=== PATIENT | male | born 1960 | race Hispanic/Latino ===

== ENCOUNTER 2017-12-01 19:09 | Emergency (ER) | payer OTHER ==
[~2017-12-01] VITALS: Ht 172.7 cm; Wt 93.0 kg
--- NOTE | 2017-12-01 19:26 | ED HEADACHE COMPLAINT ---
History of Present Illness General Chief Complaint: Headache Stated Complaint: HEADACHE Source: patient, family Exam Limitations: no limitations Vital Signs & Intake/Output Vital Signs & Intake/Output Vital Signs Date Time Temp Pulse Resp B/P B/P Pulse O2 O2 Flow FiO2 Mean Ox Delivery Rate 12/01 2029 152/100 12/02 2007 Room Air 12/01 1918 152/100 12/01 1914 96.2 75 18 172/117 98 Room Air Allergies Coded Allergies: No Known Allergies (12/01/17) Reconcile Medications Amlodipine Besylate (Norvasc) 5 MG TABLET 1 TAB PO DAILY HIGH BLOOD PRESSURE Triage Note: PT FROM HOME C/O SENT IN BY WALK IN CLINIC AND PCP, PT RECENTLY HAD HIS LISINOPRIL DOSE INCREASED FROM 5MG TO 10MG AND PROVIDER STATED IF HIS BP IS NOT DECREASED BY THE WEEKEND TO GO INTO THE ER. PT A&0X3, AMBULATORY, STATES HALL "A PRESSURE IN THE FRONT OF MY SKULL", LIGHTHEADED AT TIMES WELL. PT DENIES CP, SOB, ARM NUMBNESS/TINGLING. PTS BP IN TRIAGE 172/117 AUTO CUFF, 152/100 MANUALLY. PT ALSO STATES "MY EYES ARE REALLY HEAVY AND IM TIRED AND NOT RIGHT, KIND OF OUT OF IT" Triage Nurses Notes Reviewed? yes HPI: Patient has been on lisinopril for the past 4-5 years. Patient states that approximately week and a half ago he started developing a frontal throbbing headache and his eyes have just felt heavy. Patient states that he just feels off but he cannot really describe what that means of that. Patient has had had episodic room spinning dizziness associated with nausea. Patient went to his primary care physician his blood pressure was running high. His lisinopril was increased to 10 mg and Antivert was prescribed as well. Patient is not feeling any better and his blood pressure continues to run high she was sent to the emergency room for evaluation. The headache is throbbing and is in the frontal area there is no aggravating or mitigating factors. There is no radiation. He rates it at 4 out of 10. Past History Travel History Traveled to [place] past [place] day No Medical History Any Pertinent Medical History? see below for history Neurological: NONE EENT: NONE Cardiovascular: hypertension Respiratory: NONE Gastrointestinal: NONE Hepatic: NONE Renal: NONE Musculoskeletal: NONE Psychiatric: NONE Endocrine: NONE Surgical History Surgical History: non-contributory Psychosocial History What is your primary language Kenyan Tobacco Use: Never used ETOH Use: occasional use Illicit Drug Use: denies illicit drug use Family History Hx Contributory? No Review of Systems Review of Systems Constitutional: Reports: no symptoms. Eyes: Reports: no symptoms. Ears, Nose, Throat, Mouth: Reports: no symptoms. Respiratory: Reports: no symptoms. Cardiovascular: Reports: no symptoms. Gastrointestinal/Abdominal: Reports: see HPI, nausea. Genitourinary: Reports: no symptoms. Musculoskeletal: Reports: no symptoms. Skin: Reports: no symptoms. Neurological/Psychological: Reports: see HPI, headache. Hematologic/Endocrine: Reports: no symptoms. Endocrine: Reports: no symptoms. Immunologic/Allergic: Reports: no symptoms. All Other Systems: Reviewed and Negative Physical Exam Physical Exam General Appearance: well developed/nourished, alert, awake, anxious, mild distress Head: atraumatic, normal appearance Eyes: Bilateral: PERRL, EOMI. Ears, Nose, Throat: normal pharynx, normal ENT inspection, hearing grossly normal Neck: normal inspection, supple, full range of motion Respiratory: normal breath sounds, chest non-tender, no respiratory distress, lungs clear Cardiovascular: regular rate/rhythm, normal peripheral pulses Gastrointestinal: normal bowel sounds, soft, non-tender, no organomegaly Back: normal inspection, normal range of motion Extremities: normal inspection, normal capillary refill, normal range of motion, no edema Psychiatric: awake, alert, oriented x 3 Cranial Nerves: normal hearing, normal speech, PERRL Coordination/Gait: normal gait Motor/Sensory: no motor/sensory deficits Skin: intact, normal color, warm/dry Core Measures Sepsis Present: No Sepsis Focused Exam Completed? No Progress Differential Diagnosis: intracranial Hem., subarach. Hem., tension HALL, HTN URGENCY Plan of Care: Orders Procedure Date/time Status URINALYSIS 12/01 1925 Active TROPONIN LEVEL 12/01 1925 Complete COMPREHENSIVE METABOLIC PANEL 12/01 1925 Complete CBC WITHOUT DIFFERENTIAL 12/01 1925 Complete EKG 12/01 1925 Active Laboratory Tests 12/01/171944: Anion Gap 9, Estimated GFR > 60, BUN/Creatinine Ratio 17.1, Glucose 134 H, Calcium 8.8, Total Bilirubin 0.6, AST 74 H, ALT 112 H, Alkaline Phosphatase 50 , Troponin I < 0.01, Total Protein 6.5, Albumin 3.9, Globulin 2.6, Albumin/ Globulin Ratio 1.5, CBC w Diff NO MAN DIFF REQ, RBC 4.41 L, MCV 91.3, MCH 31.5 H, MCHC 34.5, RDW 12.5, MPV 9.1, Gran % 52.3, Lymphocytes % 35.9, Monocytes % 7.6, Eosinophils % 3.8, Basophils % 0.4, Absolute Granulocytes 2.9, Absolute Lymphocytes 2.0, Absolute Monocytes 0.4, Absolute Eosinophils 0.2, Absolute Basophils 0 Diagnostic Imaging: Viewed by Me: CT Scan. Discussed w/RAD: CT Scan. Radiology Impression: PATIENT: ARIE ALCOCER PRESENT AGE: 57 PATIENT ACCOUNT NO: [id number] : 60 LOCATION: [facility] ORDERING PHYSICIAN: Kiran Blair MD SERVICE DATE: 12/01/17 EXAM TYPE: CAT - CT HEAD WO IV CONTRAST EXAMINATION: CT HEAD without contrast CLINICAL INFORMATION: ICH COMPARISON: No prior CT scan available for comparison. TECHNIQUE: Computer axial tomographic sections acquired at 2.5 mm thin sections, noncontrasted study. DLP: 621 mGy-cm FINDINGS: CEREBRAL HEMISPHERES: There is no evidence of intra-axial or extra-axial mass, hemorrhage or acute infarct. BRAIN PARENCHYMA: Normal villela-white matter differentiation. SUBDURAL SPACE: No bleed. BASAL GANGLIA AND PINEAL GLAND: Unremarkable VENTRICLES: Symmetric and normal in size. CEREBELLUM AND BRAINSTEM: No space-occupying mass, hemorrhage or acute infarct. CEREBELLOPONTINE ANGLES: No lesion found. ORBITS: No intraorbital mass. VESSELS: Unremarkable SKULL BASE: Unremarkable INCLUDED SINUSES AT SKULL BASE: Clear SKULL AND SKIN: No fracture or bone lesion found. IMPRESSION: No CT evidence of intracranial space-occupying mass, bleed or infarct. DICTATED BY: Aysha Hess MD DATE/TIME DICTATED:12/01/172007 CLEANING SUPERVISOR:EZEQUIEL DATE/TIME TRANSCRIBED:12/01/172007 CONFIDENTIAL, DO NOT COPY WITHOUT APPROPRIATE AUTHORIZATION. <Electronically signed in Other Vendor System> SIGNED BY: Jimena WILLS,Aysha 12/01/172015 Initial ED EKG: NSR, no ST T wave changes Comments: Patient states that he has been drinking a lot of water lately to try and help with the headaches. Departure Departure Disposition: HOME OR SELF CARE Condition: Stable Clinical Impression Primary Impression: Headache Secondary Impressions: Hypertension Referrals: Patrick WILLS,Isma Fabian (PCP/Family) Additional Instructions: Check your blood pressure 3 times a day. Continue the lisinopril as prescribed by Dr. Nguyen and add amlodipine 5 mg daily to it. Have your blood work redrawn on Sunday and the results will be sent to Dr. Nguyen. Avoid free water as your salt level is a little bit low. Return if he develops any blurry vision, vomiting or for any other concerns. These headaches might be rebound headaches from the Advil that she has been taking. Changed to Tylenol for the next few days to see if that helps with the headaches. Departure Forms: Customer Survey General Discharge Information Prescriptions: Current Visit Scripts Amlodipine Besylate (Norvasc) 1 TAB PO DAILY #14 TAB
[2017-12-01 20:02] LABS: ABSOLUTE BASOPHIL COUNT 0 /CUMM (0.0-0.2); ABSOLUTE EOSINOPHIL COUNT 0.2 /CUMM (0.0-0.7); ABSOLUTE GRANULOCYTE CT 2.9 /CUMM (1.4-6.5); ABSOLUTE MONOCYTE COUNT 0.4 /CUMM (0.10-0.60); BASOPHIL % 0.4 % (0.0-2.0); EOSINOPHIL % 3.8 % (0-5); GRANULOCYTE % 52.3 % (42.2-75.2); HEMATOCRIT 40.2 % (42-52); MEAN CORPUSCULAR HGB 31.5 PG (27.0-31.0); MEAN CORPUSCULAR HGB CONC 34.5 G/DL (33.0-37.0); MEAN CORPUSCULAR VOLUME 91.3 FL (80.0-94.0); MEAN PLATELET VOLUME 9.1 FL (7.4-10.4); PLATELET COUNT 180 /CUMM (130-400); RBC DISTRIBUTION WIDTH 12.5 % (11.5-14.5); RED BLOOD CELL CT 4.41 /CUMM (4.70-6.10); WHITE BLOOD CELL COUNT 5.5 /CUMM (4.8-10.8)
--- NOTE | 2017-12-01 20:16 | CT SCAN REPORT ---
EXAMINATION: CT HEAD without contrast CLINICAL INFORMATION: ICH COMPARISON: No prior CT scan available for comparison. TECHNIQUE: Computer axial tomographic sections acquired at 2.5 mm thin sections, noncontrasted study. DLP: 621 mGy-cm FINDINGS: CEREBRAL HEMISPHERES: There is no evidence of intra-axial or extra-axial mass, hemorrhage or acute infarct. BRAIN PARENCHYMA: Normal villela-white matter differentiation. SUBDURAL SPACE: No bleed. BASAL GANGLIA AND PINEAL GLAND: Unremarkable VENTRICLES: Symmetric and normal in size. CEREBELLUM AND BRAINSTEM: No space-occupying mass, hemorrhage or acute infarct. CEREBELLOPONTINE ANGLES: No lesion found. ORBITS: No intraorbital mass. VESSELS: Unremarkable SKULL BASE: Unremarkable INCLUDED SINUSES AT SKULL BASE: Clear SKULL AND SKIN: No fracture or bone lesion found. IMPRESSION: No CT evidence of intracranial space-occupying mass, bleed or infarct.
[2017-12-01] MEDS ORDERED: NORVASC5 M1 PO (20:59)
[2017-12-01 21:21] VITALS: BP 139/92
== END 2017-12-01 21:22 ==
LOC: ERH 19:09
PROVIDERS: Emergency Medicine
DX: I10 Essential (primary) hypertension (principal)
CPT/HCPCS: 93005; 93010

== ENCOUNTER 2017-12-05 15:42 | Inpatient (IN) | payer OTHER ==
[~2017-12-05] VITALS: Ht 172.7 cm; Wt 89.0 kg
[~2017-12-05 15:42] MED LIST: NORVASC5 M1 PO
[2017-12-05 17:00] LABS: ABSOLUTE BASOPHIL COUNT 0 /CUMM (0.0-0.2); ABSOLUTE EOSINOPHIL COUNT 0.2 /CUMM (0.0-0.7); ABSOLUTE GRANULOCYTE CT 3.2 /CUMM (1.4-6.5); ABSOLUTE LYMPH COUNT 1.5 /CUMM (1.2-3.4); ABSOLUTE MONOCYTE COUNT 0.5 /CUMM (0.10-0.60); BASOPHIL % 0.4 % (0.0-2.0); EOSINOPHIL % 3.2 % (0-5); GRANULOCYTE % 59.6 % (42.2-75.2); HEMATOCRIT 39.6 % (42-52); MEAN CORPUSCULAR HGB 31.5 PG (27.0-31.0); MEAN CORPUSCULAR VOLUME 90.1 FL (80.0-94.0); MEAN PLATELET VOLUME 9.3 FL (7.4-10.4); PLATELET COUNT 186 /CUMM (130-400); RBC DISTRIBUTION WIDTH 12.3 % (11.5-14.5); WHITE BLOOD CELL COUNT 5.4 /CUMM (4.8-10.8)
[2017-12-05] MEDS ORDERED: LISINOPRIL5 M1 PO (17:05)
--- NOTE | 2017-12-05 17:05 | ED AMS/SEIZURE/WEAK/DIZZY ---
History of Present Illness General Chief Complaint: Dizziness Stated Complaint: SIB BY SODIUM LEVELS Source: patient Exam Limitations: no limitations Allergies Coded Allergies: No Known Allergies (12/01/17) Reconcile Medications Amlodipine Besylate (Norvasc) 5 MG TABLET 1 TAB PO DAILY HIGH BLOOD PRESSURE Lisinopril 5 MG TABLET 1 TAB PO DAILY HTN (Reported) Triage Note: 57 YEAR OLD MALE STATES THAT HE WAS SEEN HERE LAST WEEK FOR DIZZINESS STATES THAT HIS SODIUM WAS A LITTLE LOW, HAD OUT PT BLOOD WORK TODAY AND WAS CALLED BY PMD AND TOLD TO COME TO ER FOR LOW SODIUM, DENIES CP BUT STATES THAT DIZZINESS IS GETTING WORSE Triage Nurses Notes Reviewed? yes Onset: Abrupt Duration: week(s): Timing: recent history Injury Environment: home No Modifying Factors: none HPI: 57-year-old male comes into the emergency room for lightheaded dizziness increased weakness. Patient was seen here this past Sunday. Patient was was told to decrease his water intake. He followed up with his doctor this week and was told the sodium level was profoundly low and to come to the hospital. He denies any excessive amount of water he drinks. Denies any fever chills chest pain shortness of breath. He comes in for further evaluation. Increased fatigue and weakness. (Devendra Nielson) Vital Signs & Intake/Output Vital Signs & Intake/Output Vital Signs Date Time Temp Pulse Resp B/P B/P Pulse O2 O2 Flow FiO2 Mean Ox Delivery Rate 12/05 1724 74 18 122/66 98 Room Air 12/05 1605 97.7 84 16 112/75 98 Room Air (Ángel Perez DO) Past History Travel History Traveled to [place] past [place] day No Medical History Any Pertinent Medical History? see below for history Neurological: NONE EENT: NONE Cardiovascular: hypertension Respiratory: NONE Gastrointestinal: NONE Hepatic: NONE Renal: NONE Musculoskeletal: NONE Psychiatric: NONE Endocrine: NONE EMERGENCY DEPARTMENT/Reproductive: NONE Surgical History Surgical History: non-contributory Psychosocial History What is your primary language New Zealander Tobacco Use: Never used ETOH Use: denies use Illicit Drug Use: denies illicit drug use Family History Hx Contributory? No (Devendra Nielson) Review of Systems Review of Systems Constitutional: Reports: see HPI. EENTM: Reports: no symptoms. Respiratory: Reports: no symptoms. Cardiovascular: Reports: see HPI. GI: Reports: no symptoms. Genitourinary: Reports: no symptoms. Musculoskeletal: Reports: no symptoms. Skin: Reports: no symptoms. Neurological/Psychological: Reports: no symptoms. Hematologic/Endocrine: Reports: no symptoms. Immunologic/Allergic: Reports: no symptoms. All Other Systems: Reviewed and Negative (Devendra Nielson) Physical Exam Physical Exam General Appearance: well developed/nourished, no apparent distress, alert, awake Head: atraumatic, normal appearance Eyes: Bilateral: normal appearance, EOMI. Ears, Nose, Throat: normal ENT inspection, hearing grossly normal Neck: normal inspection Respiratory: normal breath sounds, no respiratory distress Cardiovascular: regular rate/rhythm Gastrointestinal: soft Back: normal inspection Extremities: normal range of motion Neurologic/Psych: awake, alert, oriented x 3, normal gait Skin: intact, normal color Core Measures ACS in differential dx? No CVA/TIA Diagnosis No Sepsis Present: No Sepsis Focused Exam Completed? No (Devendra Nielson) Progress Differential Diagnosis: CVA/stroke, dehydration, drug intoxication, electrolyte imbalance, SIADH Plan of Care: Orders Procedure Date/time Status Heart Healthy Diet 12/06 B Active ICU LAB BUNDLE 12/06 0500 Active CORTISOL AM 12/06 0500 Active CBC WITHOUT DIFFERENTIAL 12/06 0500 Active ICU LAB BUNDLE 12/05 1925 Active VRE ACTIVE SURVIELLANCE 12/05 1853 Active ACTIVE SURVEILLANCE NARES 12/05 1853 Active Change service to 12/05 1836 Active Pathway - chart 12/05 1824 Active House Staff 12/05 1824 Active Patient Data 12/05 1824 Active Code Status 12/05 1824 Active Lab Add-on Test 12/05 1740 Active Patient Data 12/05 1735 Active ED Holding Orders 12/05 1726 Active Admit to inpatient 12/05 1726 Active Code Status 12/05 1726 Complete URINE OSMOLALITY 12/05 1706 Active URINE LYTES, SPOT 12/05 1706 Active URINALYSIS 12/05 1706 Active SERUM OSMOLALITY 12/05 1620 Active B-TYPE NATRIURETIC PEP (BNP) 12/05 1620 Active EKG 12/05 1608 Active Saline Lock 12/05 1600 Active COMPREHENSIVE METABOLIC PANEL 12/05 1600 Active CBC WITHOUT DIFFERENTIAL 12/05 1600 Complete Lab Add-on Test 12/05 UNK Active VTE Mechanical Prophylaxis 12/05 UNK Active Vital Signs 12/05 UNK Active MISTAKE 12/05 UNK Active Activity/Ambulation 12/05 UNK Active Current Medications Sig/Stefan Start time Last Medication Dose Stop Time Status Admin Sodium Chloride 1,000 ML Q13H 12/05 190 CAN (Normal Saline 0.9%) Laboratory Tests 12/05/171919: Urine Color Pending, Urine Clarity Pending, Urine pH Pending, Ur Specific Rew Pending, Urine Protein Pending, Urine Ketones Pending, Urine Nitrite Pending, Urine Bilirubin Pending, Urine Urobilinogen Pending, Ur Leukocyte Esterase Pending, Ur Microscopic Pending, Urine Hemoglobin Pending, Urine Glucose Pending 12/05/171919: Urine Osmolality Pending, Ur Random Creatinine Pending, Ur Random Sodium Pending , Ur Random Potassium Pending, Fraction Sodium Excret Pending 12/05/17 1620: Anion Gap 10, Estimated GFR > 60, BUN/Creatinine Ratio 17.1, Glucose 118 H, Serum Osmolality 252 L, Calcium 8.8, Total Bilirubin 0.7, AST 111 H, ALT 161 H, Alkaline Phosphatase 54, Fuy-C-Obgzbcguktx Pept Pending, Total Protein 6.5, Albumin 3.8, Globulin 2.7, Albumin/Globulin Ratio 1.4, CBC w Diff NO MAN DIFF REQ, RBC 4.40 L, MCV 90.1, MCH 31.5 H, MCHC 35.0, RDW 12.3, MPV 9.3, Gran % 59.6, Lymphocytes % 28.0, Monocytes % 8.8, Eosinophils % 3.2, Basophils % 0.4, Absolute Granulocytes 3.2, Absolute Lymphocytes 1.5, Absolute Monocytes 0.5, Absolute Eosinophils 0.2, Absolute Basophils 0 Microbiology 12/05 1852 UPPER RESP: Surveillance Culture - ORD 12/05 1852 GI: Surveillance Culture - ORD Initial ED EKG: normal sinus rhythm, rate (74), nonspecific ST T wave chg (Devendra Nielson) Departure Departure Disposition: STILL A PATIENT Condition: Stable Clinical Impression Primary Impression: Hyponatremia Referrals: Isma Nguyen MD (PCP/Family) Departure Forms: Customer Survey General Discharge Information Admission Note Spoke With: Juan Carlos Puentes MD Documentation of Exam: Documentation of any treatments & extenuating circumstances including Concerns Regarding Discharge (functional status, medication knowledge or non-compliance, living conditions, etc.) that warrant an admission rather than observation: Patient will require correction of sodium. Critical care management. Repeat labs. Frequent vital sign checks. Medically not safe for discharge. Patient will require greater than 72 hours of care. (Devendra Nielson) PA/HYDRAULIC HAMMER OPERATOR Co-Sign Statement Statement: ED Attending supervision documentation- [X] I saw and evaluated the patient. I have also reviewed all the pertinent lab results and diagnostic results. I agree with the findings and the plan of care as documented in the PA's/HYDRAULIC HAMMER OPERATOR's documentation. [] I have reviewed the ED Record and agree with the PA's/HYDRAULIC HAMMER OPERATOR's documentation. [] Additions or exceptions (if any) to the PAs/HYDRAULIC HAMMER OPERATOR's note and plan are summarized below: [] (Ángel Perez DO) Critical Care Note Critical Care Note Critical Care Time: 30-74 min (35) (Devendra Nielson)
--- NOTE | 2017-12-05 17:40 | History & Physical ---
Shama Hunter MD 12/05/17 3525: General Information and [facility] MD Statement: I have seen and personally examined ARIE ALCOCER and documented this H&P. The patient is a 57 year old M who presented with a patient stated chief complaint of [low Na level]. Source of Information: patient, family, EMS Exam Limitations: no limitations History of Present Illness: Patient is a 57 male with past medical history significant for hypertension, GERD, polio with right lower extremity atrophy presented to [place] after found to have very low sodium levels on routine lab work. He was evaluated a week ago in the ER for hypertensive urgency in the setting of dizziness and frontal headaches. He was found to have a sodium level of 126 at the time and reportedly drinking more water. He was informed not to take free water discharged with adding Norvasc 5 mg for his anti-hypertensive regimen. Today he went to his primary care physician and had a follow-up lab work for his sodium. His sodium was found to be 118 and sent to ER for further evaluation. He reports restricting his free water intake, feeling dizzy and lightheaded. Had increased urination along with increased thirst. He did have nausea for the past few days along with sensation of not feeling well. He also had poor appetite with fatigue lately. Reports significant insomnia requiring marijuana once a week lately. There were no episodes of confusion/syncope/seizures. Denies any weight loss, cough, unexplained blood loss, diarrhea/hematuria. Apart from antihypertensives not on any medications other than Tums for GERD and meclizine for dizziness. Social Never smoked, used to have wine every night in the past, these days couple of beers per week. Increase intake of marijuana due to insomnia at least once a week. Surgical Underwent colonoscopy twice for rectal bleeding found to have hyperplastic polyps. Last - 2008. 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 Home Who Do You Live With? spouse Services at Home: None Smoking Status: Never Smoked ETOH Use: denies use Illicit Drug Use: denies illicit drug use Functional Ability ADLs Independent: dressing, eating, toileting, bathing. Ambulation: independent IADLs Independent: shopping, housework, finances, food prep, telephone, transportation , medication admin. Review of Systems Review of Systems Constitutional: Reports: see HPI. Exam & Diagnostic Data Last 24 Hrs of Vital Signs/I&O Vital Signs Date Time Temp Pulse Resp B/P B/P Pulse O2 O2 Flow FiO2 Mean Ox Delivery Rate 12/05 1724 74 18 122/66 98 Room Air 12/05 1605 97.7 84 16 112/75 98 Room Air Physical Exam General Appearance Alert, Oriented X3, Cooperative, No Acute Distress Skin No Rashes Skin Temp/Moisture Exam: Warm/Dry HEENT Atraumatic, PERRLA, EOMI Neck Supple Cardiovascular Normal S1, Normal S2, No Murmurs Lungs Clear to Auscultation, Normal Air Movement Abdomen Normal Bowel Sounds, Soft, No Tenderness Neurological Normal Gait, Normal Speech, Strength at 5/5 X4 Ext, Sensation Intact, atrophy of right lower extremity muscles with preserved strength 4/5. Extremities No Clubbing, No Cyanosis, No Edema Vascular Normal Pulses Last 24 Hrs of Labs/[place]: Laboratory Tests 12/05/17 2250: 12/05/17 2010: Anion Gap 11, Estimated GFR > 60, Glucose 105 H, Calcium 8.6, Phosphorus 4.0, Magnesium 1.8, Total Bilirubin 0.6, AST 104 H, ALT 155 H, Albumin 3.6 12/05/171919: Urine Color YEL, Urine Clarity CLEAR, Urine pH 6.0, Ur Specific Higden 1.025, Urine Protein NEG, Urine Ketones NEG, Urine Nitrite NEG, Urine Bilirubin NEG, Urine Urobilinogen 0.2, Ur Leukocyte Esterase NEG, Ur Microscopic EXAM NOT REQUIRED, Urine Hemoglobin NEG, Urine Glucose NEG 12/05/171919: Urine Opiates Screen < 100, Methadone Screen < 40, Barbiturate Screen < 60, Ur Phencyclidine Scrn < 6.00, Amphetamines Screen < 100, U Benzodiazepines Scrn < 85, Urine Cocaine Screen < 50, Urine Cannabis Screen 78.90 H, Urine Osmolality 518, Ur Random Creatinine 161.0, Ur Random Sodium 30, Ur Random Potassium 49.2, Fraction Sodium Excret 0.1 12/05/17 1620: Anion Gap 10, Estimated GFR > 60, BUN/Creatinine Ratio 17.1, Glucose 118 H, Serum Osmolality 252 L, Uric Acid 3.8, Calcium 8.8, Total Bilirubin 0.7, AST 111 H, ALT 161 H, Alkaline Phosphatase 54, Yca-N-Selbkvurfhc Pept < 11.1, Total Protein 6.5, Albumin 3.8, Globulin 2.7, Albumin/Globulin Ratio 1.4, TSH 0.354, Free T4 0.44 L, CBC w Diff NO MAN DIFF REQ, RBC 4.40 L, MCV 90.1, MCH 31.5 H, MCHC 35.0, RDW 12.3, MPV 9.3, Gran % 59.6, Lymphocytes % 28.0, Monocytes % 8.8, Eosinophils % 3.2, Basophils % 0.4, Absolute Granulocytes 3.2, Absolute Lymphocytes 1.5, Absolute Monocytes 0.5, Absolute Eosinophils 0.2, Absolute Basophils 0, Hepatitis A IgM Ab Pending, Hep Bs Antigen Pending, Hep B Core IgM Ab Conf Pending, Hepatitis C Antibody Pending, Acetaminophen < 10.0 L Microbiology 12/06 2219 GI: Surveillance Culture - RECD 12/05 2044 UPPER RESP: Surveillance Culture - RECD Diagnostic Data EKG Results NSR with Q waves in inferior leads, poor R wave progression, flat T wave in V5, V6 Assessment/Plan Assessment: Patient is a 57-year-old male with past medical history significant for hypertension with recent changes in antihypertensive regimen presented to [facility] due to low sodium levels on follow-up labs. Patient was asked to decrease free water intake in his recent ER visit. He reportedly had increased thirst and increased urination lately. The only symptom he had his dizziness and lightheadedness without any seizures/confusion lately. Vital signs at admission are stable. Physical examination is unremarkable. Labs due to sodium of 118 with serum osmolality of 252 and a urine osmolality of 5-1. Urine sodium is 29. Toxicology is positive for cannabis. Chest x-ray is normal. CT chest abdomen and pelvis without contrast did show cysts in liver and kidney along with 2 mm calcified nodule in the right lung. Problem list 1. Euvolemic Hyponatremia 2. HTN Plan Admit to ICU Hyponatremia Clinical picture is consistent with SIADH -patient is euvolemic with low serum osmolality high urine osmolality and relatively high sodium wasting despite restriction. Probable etiologies are recent increase in marijuana intake, ? malignancy. Not on any antipsychotics, not a smoker. * Fluid restriction - 400ml per day * NaCl tablets - 3gm TID * Na levels Q4 * Not to exceed >125 in the next 24hrs * Cortisol in am, TSH normal, free T4 mildly abnormal. * Nephro consulted. HTN Continue Lisinopril and amlodipine. DVT prophylaxis SC lovenox code status full code As Ranked By This Provider Problem List: 1. Hypertension 2. Hyponatremia Core Measures/Misc (03/25) Acute Coronary Syndrome ACS Diagnosis: No Congestive Heart Failure Congestive Heart Failure Diagnosis No Cerebrovascular Accident CVA/TIA Diagnosis: No VTE (View Protocol) VTE Risk Factors Acute Medical Illness No Mechanical VTE Prophylaxis d/t N/A MechProphylax Ordered No VTE Pharm Prophylaxis d/t NA PharmProphylax ordered Sepsis (View protocol) Sepsis Present: No If YES complete Sepsis Event Note If YES complete Sepsis Event Note Jason WILLS, [facility] 12/05/171957: Core Measures/Misc (03/25) Sepsis (View protocol) If YES complete Sepsis Event Note If YES complete Sepsis Event Note Attending MD Review Statement Attending Statement Attending MD Statement: examined this patient, discuss w/resident/PA/OUTREACH CONSULTANT, agreed w/resident/PA/OUTREACH CONSULTANT, discussed with family, reviewed images, amended to note Attending Assessment/Plan: 57 yo M with h/o HTN, GERD, hay fever and polio, was sent in by PCP for low sodium levels. Patient has been having frontal throbbing headache and lightheadedness with nausea for 1 week. He is on lisinopril 5 mg that was recently increased to 10 mg by his PCP. Antivert was prescribed but it did not work for him. He was seen in the ER for above symptoms on December 01, BP was elevated so amlodipine was added to his regimen. His sodium was noted to be 123, and he was asked to reduce his fluid intake. He apparently drinks 5 bottles of 16 ounces of water, in addition to tea/coffee. He has been feeling thirsty but does not think he has been drinking too much. He has urinary frequency. He reports cutting back on fluids in the past 4 days. Nausea+. He reports using marijuana once a week to help with insomnia. Currently he reports lightheadedness especially with change in positions, denies chest pain, dyspnea, palpitations, seizure or AMS. No diuretic use, no cancers. No vomiting or diarrhea. He drinks a couple of beers/week. Vitals stable. Exam: appears euvolemic, unremarkable exam. Labs: WBC 5.4, Plt 186, Na 118 (trend 138-139 in [id number], 134 on November 28, 2017, 123 on December 01, 2017), glucose 118, S. Osm 252, uric acid 3.8, T. Bili 0.7, AST 111, ALT 161, UA clear. Urine tox positive for cannabis. Urine osmolality 518, urine sodium 30. CXR: no acute disease. CT CAP: hepatic and right renal cyst+. EKG: sinus rhythm, inferior Q waves, nonspecific T wave changes, Qtc 475. Assessment and plan: 1. Acute on chronic hyponatremia euvolemic, given low serum osmolality with high urine osmolality and urine sodium >20, most likely SIADH that could be drug induced (marijuana, SAY). Other causes such as hypothyroidism and cortisol deficiency need to be ruled out. 2. Lightheadedness 3. Transaminitis of unclear etiology 4. Essential hypertension 5. GERD - Admit to ICU - Vitals Q1 hour - Neurochecks - Free water/ fluid restriction to 400 mls/day - Sodium tabs TID - Nephro consult - CRCU consult - Sodium levels check Q4 - Sodium to not exceed beyond 6-8 mEq in 24 hours - Check TSH, free T4, AM cortisol. - Check orthostats - Repeat urine lytes and osmolality in AM - Check HbA1c, lipid panel - Check hepatitis panel, tylenol levels, trend LFTs - CT shows a hepatic cyst, but otherwise liver and GB unremarkable - GI ppx IV protonix DVT ppx Lovenox. Full code. TTS > 45 mins
--- NOTE | 2017-12-05 18:59 | RADIOLOGY REPORT ---
EXAMINATION: CHEST 2 VIEWS CLINICAL INFORMATION: Dizziness. Dehydration. Concern for infection. COMPARISON: None. TECHNIQUE: PA and lateral views of the chest were obtained. FINDINGS: The cardiac silhouette is not enlarged. The mediastinal and hilar contours are unremarkable. There are neither pleural effusions nor pneumothoraces. There are no consolidations. The osseous structures are unremarkable. IMPRESSION: No evidence for acute disease.
--- NOTE | 2017-12-05 19:59 | Admission Certification ---
Admission Certification Certification Statement - As attending physician, I certify that at the time of - admission, based on clinical presentation, severity of - symptoms, need for further diagnostic testing and - therapeutic interventions, and risk of adverse outcomes - without in-hospital treatment, in my clinical assessment, - this patient requires an acute hospital stay for a minimum - of two nights or longer. I have also considered psychsocial - factors such as support system, advanced age, financial - issues, cognitive issues, and failed out-patient treatments, - past re-admission history, safety of patient, and lack of - compliance as applicable. Specific rationale supporting this admission is: Acute on chronic hyponatremia.
[2017-12-05 20:35] VITALS: BP 130/75
--- NOTE | 2017-12-05 21:02 | CT SCAN REPORT ---
EXAMINATION: CT CHEST, ABDOMEN AND PELVIS WITHOUT CONTRAST CLINICAL INFORMATION: Hyponatremia. Dizziness. Rule out malignancy. COMPARISON: Same day chest radiograph. TECHNIQUE: Contiguous axial thin section helical images of the chest, abdomen and pelvis were performed without oral or IV contrast. The data set was reformatted in the coronal and sagittal planes and reviewed on an independent workstation. DLP: 652 mGy-cm. FINDINGS: The heart is of normal size. There is no pericardial effusion. Evaluation for lymphadenopathy is significantly limited due to the lack of IV contrast. However, there is no demonstrable mediastinal, hilar nor axillary lymphadenopathy. There are no demonstrable chest wall masses. Review of lung windows demonstrates that there are neither pleural effusions nor pneumothoraces. There are no consolidations. There is a 2 mm benign calcified nodule within the right middle lobe on image [id number]. The liver is of normal size and attenuation without intrahepatic biliary ductal dilation. Within the dome of the right lobe of the liver, there is a 12 mm cyst. Within the caudate lobe, there is a low-attenuation lesion measuring 8 mm which is too small to fully characterize. A normal gallbladder is identified. There is no wall thickening or discernible pericholecystic fluid. The spleen, pancreas, adrenal glands are unremarkable. Both kidneys are of normal size and attenuation without hydronephrosis or nephrolithiasis. There is a 3.4 cm cyst emanating from the lower pole of the right kidney. There is bilateral perinephric stranding. There is no abdominal free fluid. There is neither mesenteric nor retroperitoneal lymphadenopathy. Normal unopacified loops of small and large bowel are identified. A normal appendix is identified. There is no pelvic free fluid. The urinary bladder is unremarkable. There is neither pelvic nor inguinal lymphadenopathy. There is a fat-containing left inguinal hernia. There is marked atrophy to the musculature about the right pelvis and hip. Bone windows: Neither sclerotic nor lytic bone lesions are identified. 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 There is a unilateral right L5 pars defect. There is no spondylolisthesis. IMPRESSION: Limited exam secondary to the lack of oral or IV contrast. However, there is no demonstrable thoracic, abdominal nor pelvic lymphadenopathy. Hepatic cyst. Right renal cyst. Low-attenuation lesion within the caudate lobe which is too small to fully characterize, but likely represents a cyst. Atrophy to the musculature of the right hemipelvis and right hip. Right coxa valga. This could be posttraumatic or developmental. Correlate with patient history.
[2017-12-06] VITALS: BP 130/60
[2017-12-06 03:27] LABS: ABSOLUTE BASOPHIL COUNT 0 /CUMM (0.0-0.2); ABSOLUTE EOSINOPHIL COUNT 0.1 /CUMM (0.0-0.7); ABSOLUTE GRANULOCYTE CT 2.5 /CUMM (1.4-6.5); ABSOLUTE LYMPH COUNT 1.4 /CUMM (1.2-3.4); ABSOLUTE MONOCYTE COUNT 0.4 /CUMM (0.10-0.60); BASOPHIL % 0.3 % (0.0-2.0); EOSINOPHIL % 2.4 % (0-5); GRANULOCYTE % 56.5 % (42.2-75.2); HEMATOCRIT 37.2 % (42-52); MEAN CORPUSCULAR HGB 31.7 PG (27.0-31.0); MEAN CORPUSCULAR HGB CONC 34.5 G/DL (33.0-37.0); MEAN CORPUSCULAR VOLUME 91.9 FL (80.0-94.0); MEAN PLATELET VOLUME 9.7 FL (7.4-10.4); PLATELET COUNT 155 /CUMM (130-400); RBC DISTRIBUTION WIDTH 12.3 % (11.5-14.5); RED BLOOD CELL CT 4.05 /CUMM (4.70-6.10); WHITE BLOOD CELL COUNT 4.4 /CUMM (4.8-10.8)
[2017-12-06 08:00] VITALS: BP 126/78
--- NOTE | 2017-12-06 08:32 | Cons- CRCU ---
Roberth Christian 12/06/17 0831: General Information and HPI Consulting Request Date of Consult: 12/06/17 Requested By: Reason for Consult: Hyponatremia Source of Information: patient, family, old records Exam Limitations: no limitations History of Present Illness: 57 yo M with h/o HTN, GERD, hay fever and polio, was sent in by PCP for low sodium levels. Patient has been complaining of headache, lightheadedness with nausea and decrease sexual drive lately. He is on lisinopril 5 mg that was recently increased to 10 mg by his PCP. Antivert was prescribed but it did not work for him. He was seen in the ER for above symptoms on December 01, BP was elevated so amlodipine was added to his regimen. His sodium was noted to be 123, and he was asked to reduce his fluid intake. He apparently drinks 5 bottles of 16 ounces of water, in addition to tea/coffee. He has been feeling thirsty but does not think he has been drinking too much. He has urinary frequency. He reports cutting back on fluids in the past 4 days. Nausea+. He reports using marijuana once a week to help with insomnia. Currently he reports lightheadedness especially with change in positions, denies chest pain, dyspnea, palpitations, seizure or AMS. No diuretic use, no cancers. No vomiting or diarrhea. He drinks a couple of beers/week. No history of trauma reported. On admission: Vitals stable. Exam: appears euvolemic, unremarkable exam. Labs: WBC 5.4, Plt 186, Na 118 (trend 138-139 in [id number], 134 on November 28, 2017, 123 on December 01, 2017), glucose 118, S. Osm 252, uric acid 3.8, T. Bili 0.7, AST 111, ALT 161, UA clear. Urine tox positive for cannabis. Urine osmolality 518, urine sodium 30. CXR: no acute disease. CT CAP: hepatic and right renal cyst+. EKG: sinus rhythm, inferior Q waves, nonspecific T wave changes, Qtc 475. Allergies/Medications Allergies: Coded Allergies: No Known Allergies (12/01/17) Home Med List: Amlodipine Besylate (Norvasc) 5 MG TABLET 1 TAB PO DAILY HIGH BLOOD PRESSURE Lisinopril 5 MG TABLET 1 TAB PO DAILY HTN (Reported) Current Medications: Current Medications Sig/Stefan Start time Last Medication Dose Route Stop Time Status Admin Amlodipine Besylate 5 MG DAILY 12/06 09 AC 12/06 PO 0842 Enoxaparin Sodium 40 MG DAILY 12/06 0900 AC 12/06 SC 0842 Hydrocortisone 50 MG Q12 12/06 0940 DC PO Hydrocortisone 50 MG Q12 12/06 1002 AC 12/06 Sodium Succinate IV 1004 Levothyroxine Sodium 0.075 MG DAILY AC 12/06 1400 AC PO Lisinopril 10 MG DAILY 12/06 0900 AC 12/06 PO 0842 Magnesium Oxide 400 MG BID 12/06 0900 AC 12/06 PO 12/06 2300 0850 Melatonin 5 MG AT BEDTIME 12/06 2100 DC PO Melatonin 5 MG AT BEDTIME 12/05 2345 AC 12/05 PO 2348 Pantoprazole Sodium 40 MG DAILY 12/05 2130 AC 12/06 IV 0841 Sodium Chloride 3,000 MG TID 12/06 0900 AC 12/06 PO 0841 Sodium Chloride 2,000 MG ONCE ONE 12/05 2345 DC 12/06 PO 12/05 2346 0119 Sodium Chloride 1,000 MG TID 12/05 2112 DC 12/05 PO 2230 Sodium Chloride 500 ML .Q6H40M 12/05 2030 DC IV 12/06 0309 Sodium Chloride 1,000 ML Q13H 12/05 1900 CAN IV Review of Systems Review of Systems Constitutional: Reports: no symptoms. Cardiovascular: Reports: no symptoms. Respiratory: Reports: no symptoms. GI: Reports: no symptoms. Genitourinary: Reports: no symptoms. Musculoskeletal: Reports: no symptoms. Skin: Reports: no symptoms. Neurological/Psychological: Reports: headache. Hematologic/Endocrine: Reports: no symptoms. Immunologic/Allergic: Reports: no symptoms. All Other Systems: Reviewed and Negative Past History Travel History Traveled to [place] past 21 day No Medical History Blood Transfusion Hx: No Neurological: NONE EENT: NONE Cardiovascular: hypertension Respiratory: NONE Gastrointestinal: NONE Hepatic: NONE Renal: NONE Musculoskeletal: NONE Psychiatric: NONE Endocrine: NONE C[employer] MAINTENANCE/Reproductive: NONE Surgical History Surgical History: non-contributory Psychosocial History Where Do You Live? Home Who Do You Live With? spouse Services at Home: None Smoking Status: Never Smoked ETOH Use: denies use Illicit Drug Use: denies illicit drug use Functional Ability ADLs Independent: dressing, eating, toileting, bathing. Ambulation: independent IADLs Independent: shopping, housework, finances, food prep, telephone, transportation , medication admin. Exam & Diagnostic Data Last 24 Hrs of Vital Signs/I&O Vital Signs Date Time Temp Pulse Resp B/P B/P Pulse O2 O2 Flow FiO2 Mean Ox Delivery Rate 12/06 0842 78 118/68 12/06 0842 75 118/68 12/06 0800 98 Room Air 12/06 0800 97.8 80 18 126/78 99 Room Air 12/06 0400 98 Room Air 12/06 0000 98 Room Air 12/06 0000 97.5 70 20 130/60 98 Room Air 12/05 2122 96.7 12/05 2043 Room Air 12/05 2035 76 23 130/75 100 Room Air 12/05 2002 84 148/91 12/05 1946 77 16 125/74 95 Room Air 12/05 1724 74 18 122/66 98 Room Air 12/05 1605 97.7 84 16 112/75 98 Room Air Intake & Output 12/06 1600 12/06 0800 12/06 0000 Intake Total 100 100 Output Total 400 100 Balance -300 0 Intake, Oral 100 100 Output, Urine 400 100 Patient 203 lb Weight Physical Exam General Appearance: well developed/nourished, no apparent distress, alert, awake Head: atraumatic, normal appearance Respiratory: normal breath sounds, no respiratory distress Cardiovascular: regular rate/rhythm, normal peripheral pulses Gastrointestinal: normal bowel sounds, soft, non-tender Extremities: normal inspection, normal capillary refill, no edema Neurologic/Psych: no motor/sensory deficits, awake, alert, oriented x 3 Last 48 Hrs of Labs/Kwesi: And will Laboratory Tests 12/06/17 1000: Anion Gap 7, Estimated GFR > 60, BUN/Creatinine Ratio 18.3 12/06/17 1000: ACTH Stimulation Pending 12/06/17 0300: Sodium Cancelled 12/06/17 0300: Anion Gap 9, Estimated GFR > 60, Glucose 92, Calcium 7.9 L, Phosphorus 3.5, Magnesium 1.8, Total Bilirubin 0.7, AST 93 H, ALT 144 H, Albumin 3.3 L, Prolactin 18.9 H, Total Testosterone 22.3 L, Cortisol AM Sample 0.8 L, CBC w Diff NO MAN DIFF REQ, RBC 4.05 L, MCV 91.9, MCH 31.7 H, MCHC 34.5, RDW 12.3, MPV 9.7, Gran % 56.5, Lymphocytes % 31.3, Monocytes % 9.5 H, Eosinophils % 2.4, Basophils % 0.3, Absolute Granulocytes 2.5, Absolute Lymphocytes 1.4, Absolute Monocytes 0.4, Absolute Eosinophils 0.1, Absolute Basophils 0 12/05/172249: 12/05/172009: Anion Gap 11, Estimated GFR > 60, Glucose 105 H, Calcium 8.6, Phosphorus 4.0, Magnesium 1.8, Total Bilirubin 0.6, AST 104 H, ALT 155 H, Albumin 3.6 12/05/171919: Urine Color YEL, Urine Clarity CLEAR, Urine pH 6.0, Ur Specific [place] 1.025, Urine Protein NEG, Urine Ketones NEG, Urine Nitrite NEG, Urine Bilirubin NEG, Urine Urobilinogen 0.2, Ur Leukocyte Esterase NEG, Ur Microscopic EXAM NOT REQUIRED, Urine Hemoglobin NEG, Urine Glucose NEG 12/05/171919: Urine Opiates Screen < 100, Methadone Screen < 40, Barbiturate Screen < 60, Ur Phencyclidine Scrn < 6.00, Amphetamines Screen < 100, U Benzodiazepines Scrn < 85, Urine Cocaine Screen < 50, Urine Cannabis Screen 78.90 H, Urine Osmolality 518, Ur Random Creatinine 161.0, Ur Random Sodium 30, Ur Random Potassium 49.2, Fraction Sodium Excret 0.1 12/05/171619: Anion Gap 10, Estimated GFR > 60, BUN/Creatinine Ratio 17.1, Glucose 118 H, Serum Osmolality 252 L, Uric Acid 3.8, Calcium 8.8, Total Bilirubin 0.7, AST 111 H, ALT 161 H, Alkaline Phosphatase 54, Vlh-X-Mpuwbyxbzow Pept < 11.1, Total Protein 6.5, Albumin 3.8, Globulin 2.7, Albumin/Globulin Ratio 1.4, TSH 0.354, Free T4 0.44 L, CBC w Diff NO MAN DIFF REQ, RBC 4.40 L, MCV 90.1, MCH 31.5 H, MCHC 35.0, RDW 12.3, MPV 9.3, Gran % 59.6, Lymphocytes % 28.0, Monocytes % 8.8, Eosinophils % 3.2, Basophils % 0.4, Absolute Granulocytes 3.2, Absolute Lymphocytes 1.5, Absolute Monocytes 0.5, Absolute Eosinophils 0.2, Absolute Basophils 0, Hepatitis A IgM Ab NONREACTIVE, Hep Bs Antigen NONREACTIVE , Hep B Core IgM Ab Conf NONREACTIVE, Hepatitis C Antibody NONREACTIVE, Acetaminophen < 10.0 L Diagnostic Data EKG Results NSR with Q waves in inferior leads, poor R wave progression, flat T wave in V5, V6 CXR Results IMPRESSION: No evidence for acute disease. Other Results CT-chest: Limited exam secondary to the lack of oral or IV contrast. However, there is no demonstrable thoracic, abdominal nor pelvic lymphadenopathy. Hepatic cyst. Right renal cyst. Low-attenuation lesion within the caudate lobe which is too small to fully characterize, but likely represents a cyst. Atrophy to the musculature of the right hemipelvis and right hip. Right coxa valga. This could be posttraumatic or developmental. Correlate with patient history. Abdomen/pelvis CT: Limited exam secondary to the lack of oral or IV contrast. However, there is no demonstrable thoracic, abdominal nor pelvic lymphadenopathy. Hepatic cyst. Right renal cyst. Low-attenuation lesion within the caudate lobe which is too small to fully characterize, but likely represents a cyst. Atrophy to the musculature of the right hemipelvis and right hip. Right coxa valga. This could be posttraumatic or developmental. Correlate with patient history. Assessment/Plan CRCU Impression/Plan: Patient is a 57-year-old male with past medical history significant for hypertension with recent changes in antihypertensive regimen presented to [facility] due to low sodium levels on follow-up labs. Patient was asked to decrease free water intake in his recent ER visit. He reportedly had increased thirst and increased urination lately. The only symptom he had his dizziness and lightheadedness without any seizures/confusion lately. Vital signs at admission are stable. Physical examination is unremarkable. Labs due to sodium of 118 with serum osmolality of 252 and a urine osmolality of 5-1. Urine sodium is 29. Toxicology is positive for cannabis. Chest x-ray is normal. CT chest abdomen and pelvis without contrast did show cysts in liver and kidney along with 2 mm calcified nodule in the right lung. Assessment: 1. Euvolemic Hyponatremia 2. HTN Plan: * Will continue to monitor the patient at ICU, and will repeat this a.m. and later in the evening * Sodium level down to 118 which improved to 122 this morning after he was placed on a fluid restriction and started on 1 g sodium chloride 3 times a day. * This patient's serum is alert he is low at 252, urine osmolality is 518, urine sodium is 13. The mentioned lab value indicate most likely a euvolemic hyponatremia, however given that he has very low cortisol level of 0.8, and borderline low TSH of 0.354, and free T4 of 0.44 that's most likely means patient had their pituitary-induced hyponatremia (hypocortisolism and hypo-thyroidism can cause hyponatremia) * Will add FSH, LH, and prolactin the morning lab * Will order ACTH level * Fluid restriction -1000 ml per day that was discussed with irrigating pump operator * NaCl tablets - 3gm TID we'll continue that * Na levels Q4 * Patient started on hydrocortisone 50 every 12 per endocrinology consult (Dr. ochoa), she advised to give 1 dose today at a.m. and in the afternoon we'll give 1 dose of Synthroid 0.075 MCG * Nephrology and endocrinology on board * Per irrigating pump operator if sodium goes up quickly to give Lasix (we can start with 20 po twice a day) * Spoke with patient orthopedist at [place], Dr. Gissel Howell regarding left knee implant, it was confirmed that the implant is compatible with MRI. HTN Continue Lisinopril and amlodipine. DVT prophylaxis SC lovenox code status full code Consult Acknowledgment - Thank you for your consult request. Jaida WILLS,[facility] 12/06/17 0848: Assessment/Plan CRCU Consult Acknowledgment - Thank you for your consult request.
--- NOTE | 2017-12-06 09:03 | Cons- CRCU ---
General Information and HPI Consulting Request Date of Consult: 12/06/17 Requested By: med team History of Present Illness: Patient is a 57 male with past medical history significant for hypertension, GERD, polio with right lower extremity atrophy presented to [facility] after found to have very low sodium levels on routine lab work. He was evaluated a week ago in the ER for hypertensive urgency in the setting of dizziness and frontal headaches. He was found to have a sodium level of 126 at the time and reportedly drinking more water. He was informed not to take free water discharged with adding Norvasc 5 mg for his anti-hypertensive regimen. He went to his primary care physician and had a follow-up lab work for his sodium. His sodium was found to be 118 and sent to ER for further evaluation. He reports restricting his free water intake, feeling dizzy and lightheaded. Had increased urination along with increased thirst. He did have nausea for the past few days along with sensation of not feeling well. He also had poor appetite with fatigue lately. Reports significant insomnia requiring marijuana once a week lately. There were no episodes of confusion/syncope/seizures. Denies any weight loss, cough, unexplained blood loss, diarrhea/hematuria. Apart from antihypertensives not on any medications other than Tums for GERD and meclizine for dizziness. Social Never smoked, used to have wine every night in the past, these days couple of beers per week. Increase intake of marijuana due to insomnia at least once a week. Surgical Underwent colonoscopy twice for rectal bleeding found to have hyperplastic polyps. Last - 2008. Allergies/Medications Allergies: Coded Allergies: No Known Allergies (12/01/17) Home Med List: Amlodipine Besylate (Norvasc) 5 MG TABLET 1 TAB PO DAILY HIGH BLOOD PRESSURE Lisinopril 5 MG TABLET 1 TAB PO DAILY HTN (Reported) Review of Systems Review of Systems Constitutional: Reports: see HPI. Comments General Appearance Alert, Oriented X3, Cooperative, No Acute Distress Skin No Rashes Skin Temp/Moisture Exam: Warm/Dry HEENT Atraumatic, PERRLA, EOMI Neck Supple Cardiovascular Normal S1, Normal S2, No Murmurs Lungs Clear to Auscultation, Normal Air Movement Abdomen Normal Bowel Sounds, Soft, No Tenderness Neurological Normal Gait, Normal Speech, Strength at 5/5 X4 Ext, Sensation Intact, atrophy of right lower extremity muscles with preserved strength 4/5. 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 Home Who Do You Live With? spouse Services at Home: None Smoking Status: Never Smoked ETOH Use: denies use Illicit Drug Use: denies illicit drug use Functional Ability ADLs Independent: dressing, eating, toileting, bathing. Ambulation: independent IADLs Independent: shopping, housework, finances, food prep, telephone, transportation , medication admin. Exam & Diagnostic Data Last 24 Hrs of Vital Signs/I&O Vital Signs Date Time Temp Pulse Resp B/P B/P Pulse O2 O2 Flow FiO2 Mean Ox Delivery Rate 12/06 0842 78 118/68 12/06 0842 75 118/68 12/06 0400 98 Room Air 12/06 0000 98 Room Air 12/06 0000 97.5 70 20 130/60 98 Room Air 12/05 2122 96.7 12/05 2043 Room Air 12/05 2035 76 23 130/75 100 Room Air 12/05 2003 84 148/91 12/05 1946 77 16 125/74 95 Room Air 12/05 1724 74 18 122/66 98 Room Air 12/05 1605 97.7 84 16 112/75 98 Room Air Intake & Output 12/06 1600 12/06 0800 12/06 0000 Intake Total 100 100 Output Total 400 100 Balance -300 0 Intake, Oral 100 100 Output, Urine 400 100 Patient 203 lb Weight Last 48 Hrs of Labs/Kwesi: Laboratory Tests 12/06/17 0300: Sodium Cancelled 12/06/17 0300: Anion Gap 9, Estimated GFR > 60, Glucose 92, Calcium 7.9 L, Phosphorus 3.5, Magnesium 1.8, Total Bilirubin 0.7, AST 93 H, ALT 144 H, Albumin 3.3 L, Cortisol AM Sample 0.8 L, CBC w Diff NO MAN DIFF REQ, RBC 4.05 L, MCV 91.9, MCH 31.7 H, MCHC 34.5, RDW 12.3, MPV 9.7, Gran % 56.5, Lymphocytes % 31.3, Monocytes % 9.5 H, Eosinophils % 2.4, Basophils % 0.3, Absolute Granulocytes 2.5, Absolute Lymphocytes 1.4, Absolute Monocytes 0.4, Absolute Eosinophils 0.1, Absolute Basophils 0 12/05/170: 12/05/172009: Anion Gap 11, Estimated GFR > 60, Glucose 105 H, Calcium 8.6, Phosphorus 4.0, Magnesium 1.8, Total Bilirubin 0.6, AST 104 H, ALT 155 H, Albumin 3.6 12/05/171919: Urine Color YEL, Urine Clarity CLEAR, Urine pH 6.0, Ur Specific [place] 1.025, Urine Protein NEG, Urine Ketones NEG, Urine Nitrite NEG, Urine Bilirubin NEG, Urine Urobilinogen 0.2, Ur Leukocyte Esterase NEG, Ur Microscopic EXAM NOT REQUIRED, Urine Hemoglobin NEG, Urine Glucose NEG 12/05/171919: Urine Opiates Screen < 100, Methadone Screen < 40, Barbiturate Screen < 60, Ur Phencyclidine Scrn < 6.00, Amphetamines Screen < 100, U Benzodiazepines Scrn < 85, Urine Cocaine Screen < 50, Urine Cannabis Screen 78.90 H, Urine Osmolality 518, Ur Random Creatinine 161.0, Ur Random Sodium 30, Ur Random Potassium 49.2, Fraction Sodium Excret 0.1 12/05/171619: Anion Gap 10, Estimated GFR > 60, BUN/Creatinine Ratio 17.1, Glucose 118 H, Serum Osmolality 252 L, Uric Acid 3.8, Calcium 8.8, Total Bilirubin 0.7, AST 111 H, ALT 161 H, Alkaline Phosphatase 54, Ytc-[id number]-Vvdaypmhdbf Pept < 11.1, Total Protein 6.5, Albumin 3.8, Globulin 2.7, Albumin/Globulin Ratio 1.4, TSH 0.354, Free T4 0.44 L, CBC w Diff NO MAN DIFF REQ, RBC 4.40 L, MCV 90.1, MCH 31.5 H, MCHC 35.0, RDW 12.3, MPV 9.3, Gran % 59.6, Lymphocytes % 28.0, Monocytes % 8.8, Eosinophils % 3.2, Basophils % 0.4, Absolute Granulocytes 3.2, Absolute Lymphocytes 1.5, Absolute Monocytes 0.5, Absolute Eosinophils 0.2, Absolute Basophils 0, Hepatitis A IgM Ab Pending, Hep Bs Antigen Pending, Hep B Core IgM Ab Conf Pending, Hepatitis C Antibody Pending, Acetaminophen < 10.0 L Assessment/Plan CRCU Impression/Plan: Physical Exam General Appearance Alert, Oriented X3, Cooperative, No Acute Distress Skin No Rashes Skin Temp/Moisture Exam: Warm/Dry HEENT Atraumatic, PERRLA, EOMI Neck Supple Cardiovascular Normal S1, Normal S2, No Murmurs Lungs Clear to Auscultation, Normal Air Movement Abdomen Normal Bowel Sounds, Soft, No Tenderness Neurological Sensation Intact, atrophy of right lower extremity muscles with preserved strength 4/5. Extremities No Clubbing, No Cyanosis, No Edema Vascular Normal Pulses SIGNIFICANT DATA CT scan of the chest abdomen and pelvis which was done without oral IV contrast did not show any significant lymphadenopathy, hepatic cyst, atrial free of his right hemipelvis and hip due to his postpolio. No major lung nodules with an old benign 2 mm calcified nodule. IMPRESSION This is a gentleman with history of hypertension, GERD, childhood polio with right-sided weakness, rhinitis with hayfever, has had some mild headache lightheadedness for a week. He has been on lisinopril and amlodipine in the recent past. He does drink many bottles of water at home dose as he has coffee. Since he came into the emergency room was noted to have profound hyponatremia with signs and symptoms suggestive of SIADH. This could be related to probable severe cortisol insufficiency as he has asthenia in the recent past. Patient does also drink excessive water. Profound cortisols insufficiency needs workup He does have some abnormality of his thyroid function tests, with low free T4 but TSH is low as well. His other issues include lightheadedness which may be related to hyponatremia, transaminitis which needs to be evaluated if persistent, hypertension and GERD. RECOMMENDATION Continue to monitor his sodium Restrict free water Continue current blood pressure medications Do a cosyntropin stimulation test Patient would probably require an MRI with and without gadolinium to rule out any pituitary adenomas Check prolactin level Check ACTH level prior to cosyntropin trest Endocrine after above tests are done Pt to remain in ICU Consult Acknowledgment - Thank you for your consult request.
--- NOTE | 2017-12-06 13:42 | Cons- Nephrology ---
General Information and HPI Consulting Request Date of Consult: 12/06/17 Requested By: Jaida WILLS,Quentin Phelps Reason for Consult: Hyponatremia Source of Information: patient, old records Exam Limitations: no limitations History of Present Illness: I have been asked to see this 57-year-old gentleman because of hyponatremia. 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 He was evaluated in the [place] ED about 1 week ago complaining of dizziness and frontal headaches. He was treated for hypertensive urgency and was advised not to drink as much water as he was used to because his serum sodium was noted to be 126. Amlodipine was added to his antihypertensive regimen which at that time consisted primarily of low dose lisinopril. Arrangements were made for a repeat outpatient serum sodium which was found to be 118 resulting in referral back to the ED from where he was admitted. He continues to have the headaches which are described as frontal and behind his eyes without any associated visual symptoms, nausea or vomiting. There is also been no fever, chills, upper respiratory symptoms, abdominal pain or diarrhea. With fluid restriction and salt tablets his serum sodium has come up to 123 this morning. His urine was positive for cannabis which he readily admits to using once or twice a week for insomnia. Serum osmolality was low to 52 and serum uric acid was also low at 3.8. Urine osmolality was 518 with a urine sodium of 30 and fractional excretion of 0.1. Of note, serum cortisol was markedly depressed at 0.8. Free T4 was low at 0.44 while TSH was within normal limits. Testosterone level was low while prolactin level was slightly high. Past medical history is as noted above including hypertension, GERD left total knee replacement and polio leading to atrophy of his right lower extremity Medications: Amlodipine 5 mg daily, lisinopril 5 mg daily Allergies no known drug allergies Family history: His mother had one kidney. 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 Smokes marijuana once or twice a week because it helps him deal with his insomnia. Allergies/Medications Allergies: Coded Allergies: No Known Allergies (12/01/17) Home Med List: Amlodipine Besylate (Norvasc) 5 MG TABLET 1 TAB PO DAILY HIGH BLOOD PRESSURE Lisinopril 5 MG TABLET 1 TAB PO DAILY HTN (Reported) Review of Systems Review of Systems: Gen.: Appetite good, no unexplained weight loss or weight gain Skin: No rash or jaundice HEENT: No visual or hearing disturbances, no discharge Cardiopulmonary: No shortness of breath, cough, chest pain, orthopnea GI: No nausea, vomiting, abdominal pain, diarrhea : No dysuria, hematuria or other symptoms referable to the urinary tract Musculoskeletal: No arthralgias, arthritis, myalgias, weakness Neuro: Headaches (see HPI), no visual symptoms, no altered mental status, speech impairment, focal weakness, paresthesias Past History Travel History Traveled to [place] past 21 day No Medical History Blood Transfusion Hx: No Neurological: NONE EENT: NONE Cardiovascular: hypertension Respiratory: NONE Gastrointestinal: NONE Hepatic: NONE Renal: NONE Musculoskeletal: NONE Psychiatric: NONE Endocrine: NONE CONNECTION WORKER/Reproductive: NONE Surgical History Surgical History: non-contributory Psychosocial History Where Do You Live? Home Who Do You Live With? spouse Services at Home: None Smoking Status: Never Smoked ETOH Use: denies use Illicit Drug Use: denies illicit drug use Functional Ability ADLs Independent: dressing, eating, toileting, bathing. Ambulation: independent IADLs Independent: shopping, housework, finances, food prep, telephone, transportation , medication admin. Exam & Diagnostic Data Vital Signs and I&O Vital Signs Date Time Temp Pulse Resp B/P B/P Pulse O2 O2 Flow FiO2 Mean Ox Delivery Rate 12/06 0842 78 118/68 12/06 0842 75 118/68 12/06 0800 98 Room Air 12/06 0800 97.8 80 18 126/78 99 Room Air 12/06 0400 98 Room Air 12/06 0000 98 Room Air 12/06 0000 97.5 70 20 130/60 98 Room Air 12/05 2122 96.7 12/05 2043 Room Air 12/05 2035 76 23 130/75 100 Room Air 12/05 2002 84 148/91 12/05 1946 77 16 125/74 95 Room Air 12/05 1724 74 18 122/66 98 Room Air 12/05 1605 97.7 84 16 112/75 98 Room Air Intake & Output 12/06 1600 12/06 0400 12/05 1600 12/05 0400 05/29 1600 05/29 0400 Intake Total 100 100 Output Total 400 100 Balance -300 0 Intake, Oral 100 100 Output, Urine 400 100 Patient 203 lb Weight Physical Exam: General: Well-developed, pleasant white male in NAD Skin: No rash or jaundice, turgor good HEENT: Conjunctivae pink, sclerae anicteric, mucous membranes moist Neck: Without masses or thyromegaly, no supraclavicular or cervical adenopathy Chest: Clear to P&A Heart: Regular rate and rhythm without S3 or rub Abdomen: Soft and nontender without palpable masses or organomegaly Extremities: Without cyanosis or edema; the right lower extremity is atrophic and there is a well-healed surgical scar over the left knee Neuro: Cognitively intact, no focal findings, no asterixis or myoclonus, cranial nerves intact with no hemianopsia Assessment/Plan Assessment/Recommendations Assessment: 57-year-old man with hyponatremia of as yet undetermined etiology in the setting of what appears to be euvolemic and decreased levels of cortisol and thyroid hormone - either of which can be associated with euvolemic hyponatremia - suggesting the possibility of hypopituitarism. The absence of hyperkalemia, metabolic acidosis and hypotension argue against a diagnosis of primary adrenal insufficiency. Recommendations: 1. Cortrosyn stimulation test 2. MRI of brain if not contraindicated by his previous TKR 3. Endocrine consult 4. Limit p.o. fluids to 800 cc per day 5. Continue salt tabs at current dose for now 6. If serum sodium fails to improve further, add furosemide 20 mg p.o. bid Thank you. We will follow along with you.
--- NOTE | 2017-12-06 15:18 | Cons- Endocrinology ---
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 In ER, his sodium level was 118. He was having frontal headache along with nausea. The work-up for hyponatremia was done which revealed TSH 0.354, free T4 0.44, cortisol 0.8. As per nephrology, he was put on salt tablets 3000 mg x 3 times a day. His sidium level has been 123, 122 and 124. Patient has been feeling fatigued for a while. In addition, he has had low sexual drive. He denied having any head trauma or vision field changes. Allergies/Medications Allergies: Coded Allergies: No Known Allergies (12/01/17) Home Med List: Amlodipine Besylate (Norvasc) 5 MG TABLET 1 TAB PO DAILY HIGH BLOOD PRESSURE Lisinopril 5 MG TABLET 1 TAB PO DAILY HTN (Reported) Review of Systems Review of Systems Constitutional: Reports: see HPI, malaise. Cardiovascular: Denies: chest pain. Respiratory: Denies: short of breath. GI: Reports: nausea. Hematologic/Endocrine: Denies: polyuria, polydipsia. Past History Travel History Traveled to [place] past 21 day No Medical History Blood Transfusion Hx: No Neurological: NONE EENT: NONE Cardiovascular: hypertension Respiratory: NONE Gastrointestinal: NONE Hepatic: NONE Renal: NONE Musculoskeletal: NONE Psychiatric: NONE Endocrine: NONE SHADE HANGER/Reproductive: NONE Surgical History Surgical History: non-contributory Psychosocial History Where Do You Live? Home Who Do You Live With? spouse Services at Home: None Smoking Status: Never Smoked ETOH Use: denies use Illicit Drug Use: denies illicit drug use Functional Ability ADLs Independent: dressing, eating, toileting, bathing. Ambulation: independent IADLs Independent: shopping, housework, finances, food prep, telephone, transportation , medication admin. Exam & Diagnostic Data Last 24 Hrs of Vital Signs/I&O Vital Signs Date Time Temp Pulse Resp B/P B/P Pulse O2 O2 Flow FiO2 Mean Ox Delivery Rate 12/06 1600 97 Room Air 12/06 1600 97.3 92 16 104/60 98 Room Air 12/06 1200 97 Room Air 12/06 0842 78 118/68 12/06 0842 75 118/68 12/06 0800 98 Room Air 12/06 0800 97.8 80 18 126/78 99 Room Air 12/06 0400 98 Room Air 12/06 0000 98 Room Air 12/06 0000 97.5 70 20 130/60 98 Room Air 12/05 2122 96.7 12/053 Room Air 12/055 76 23 130/75 100 Room Air 12/05 2002 84 148/91 Intake & Output 12/06 1600 12/06 0800 12/06 0000 Intake Total 372 100 100 Output Total 900 400 100 Balance -528 -300 0 Intake, IV 32 Intake, Oral 340 100 100 Number 0 Bowel Movements Output, Urine 900 400 100 Patient 203 lb Weight Physical Exam General Appearance: no apparent distress Neck: normal inspection Respiratory: lungs clear Cardiovascular: regular rate/rhythm Gastrointestinal: soft Extremities: no edema Labs/Kwesi Results: Laboratory Tests 12/06 12/06 12/06 12/06 12/06 1600 1353 1000 1000 0300 Chemistry Sodium (137 - 145 mmol/L) Cancelled 124 L 122 L Cancelled Potassium (3.5 - 5.1 mmol/L) Cancelled 4.3 4.0 Chloride (98 - 107 mmol/L) Cancelled 92 L 94 L Carbon Dioxide (22 - 30 mmol/L) Cancelled 21 L 21 L Anion Gap (5 - 16) Cancelled 10 7 BUN (9 - 20 mg/dL) Cancelled 11 11 Creatinine (0.7 - 1.2 mg/dL) Cancelled 0.7 0.6 L Estimated GFR (>60 ml/min) > 60 > 60 BUN/Creatinine Ratio (7 - 25 %) Cancelled 15.7 18.3 ACTH Stimulation Pending 12/06 12/05 12/05 0300 2250 2009 Chemistry Sodium (137 - 145 mmol/L) 123 L 118 *L 118 *L Potassium (3.5 - 5.1 mmol/L) 4.0 4.1 Chloride (98 - 107 mmol/L) 93 L 85 L Carbon Dioxide (22 - 30 mmol/L) 21 L 22 Anion Gap (5 - 16) 9 11 BUN (9 - 20 mg/dL) 11 12 Creatinine (0.7 - 1.2 mg/dL) 0.6 L 0.7 Estimated GFR (>60 ml/min) > 60 > 60 Glucose (65 - 99 mg/dL) 92 105 H Calcium (8.4 - 10.2 mg/dL) 7.9 L 8.6 Phosphorus (2.5 - 4.5 mg/dL) 3.5 4.0 Magnesium (1.6 - 2.3 mg/dL) 1.8 1.8 Total Bilirubin (0.2 - 1.3 mg/dL) 0.7 0.6 AST (17 - 59 U/L) 93 H 104 H ALT (21 - 72 U/L) 144 H 155 H Albumin (3.5 - 5.0 g/dL) 3.3 L 3.6 Prolactin (3.7 - 17.9 ng/mL) 18.9 H Total Testosterone (71.8 - 623 ng/dL) 22.3 L Cortisol AM Sample (4.46 - 22.7 ug/dL) 0.8 L Hematology CBC w Diff NO MAN DIFF REQ WBC (4.8 - 10.8 /CUMM) 4.4 L RBC (4.70 - 6.10 /CUMM) 4.05 L Hgb (14.0 - 18.0 G/DL) 12.9 L Hct (42 - 52 %) 37.2 L MCV (80.0 - 94.0 FL) 91.9 MCH (27.0 - 31.0 PG) 31.7 H MCHC (33.0 - 37.0 G/DL) 34.5 RDW (11.5 - 14.5 %) 12.3 Plt Count (130 - 400 /CUMM) 155 MPV (7.4 - 10.4 FL) 9.7 Gran % (42.2 - 75.2 %) 56.5 Lymphocytes % (20.5 - 51.1 %) 31.3 Monocytes % (1.7 - 9.3 %) 9.5 H Eosinophils % (0 - 5 %) 2.4 Basophils % (0.0 - 2.0 %) 0.3 Absolute Granulocytes (1.4 - 6.5 /CUMM) 2.5 Absolute Lymphocytes (1.2 - 3.4 /CUMM) 1.4 Absolute Monocytes (0.10 - 0.60 /CUMM) 0.4 Absolute Eosinophils (0.0 - 0.7 /CUMM) 0.1 Absolute Basophils (0.0 - 0.2 /CUMM) 0 Assessment/Plan Assessment/Plan 57-year-old male with Hx of hypertension, GERD, left total knee replacement and 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 In ER, his sodium level was 118. The work-up demonstrated low cortisol, low free T4 along with inappropriate low normal TSH suggestive of hypopituitarism. His prolactin level is mildly elevated. CT of head done on 12/01 was unremarkable. Urine drug screen was positive for Marijuana. The intermediate accountant marijuana use might alter multiple hormonal systems including the suppression of the gonadal steroids, thyroid hormone and suppression of lilpapopxhzs-aplxhvazi-rxpdfud axis. However, Hypothalamic-pituitary lesions needs to be r/o. Plan: 1. check testosterone, FSH and LH; 2. recommend MRI of pituitary with and w/o contrast; 3. start Hydrocortisone 50 mg iv every 12 hours; 4. start Levothyroxine 75 mcg po daily after patient receives the first dose of hydrocortisone; 5. monitor electrolytes and salt tablets will be decreased accordingly after sodium level improves. 6. monitor free T4 level in 2-3 days to look for a trend. will follow. Consult Acknowledgment - Thank you for your consult request.
[2017-12-06 16:00] VITALS: BP 104/60
--- NOTE | 2017-12-06 16:54 | Event Note ---
Event Note Event Note: A family meeting held with X- Violeta, 2 sons: Dion and Kimberlee and daughter Truman in the presence of myself, and with case management Jayde. The patient choose his X- Deepika as health care proxy.
[2017-12-07] VITALS: BP 110/60
[2017-12-07 04:52] LABS: ABSOLUTE BASOPHIL COUNT 0 /CUMM (0.0-0.2); ABSOLUTE EOSINOPHIL COUNT 0 /CUMM (0.0-0.7); ABSOLUTE GRANULOCYTE CT 3.9 /CUMM (1.4-6.5); ABSOLUTE MONOCYTE COUNT 0.4 /CUMM (0.10-0.60); BASOPHIL % 0.3 % (0.0-2.0); EOSINOPHIL % 0.5 % (0-5); HEMATOCRIT 38.1 % (42-52); MEAN CORPUSCULAR HGB 31.6 PG (27.0-31.0); MEAN CORPUSCULAR HGB CONC 34.3 G/DL (33.0-37.0); MEAN CORPUSCULAR VOLUME 92.2 FL (80.0-94.0); PLATELET COUNT 191 /CUMM (130-400); RBC DISTRIBUTION WIDTH 12.8 % (11.5-14.5); RED BLOOD CELL CT 4.13 /CUMM (4.70-6.10); WHITE BLOOD CELL COUNT 5.4 /CUMM (4.8-10.8)
--- NOTE | 2017-12-07 07:25 | PN- Resident CRCU ---
Subjective HPI/CRCU Issues: -Hypopituitarim -Hyponatremia' -HTN 24 Hour Events: Stable Objective Vital Signs & I&O Last 8 Hrs of Vitals and I&O: Intake & Output 12/07 1600 Intake Total Output Total Balance Patient 202 lb Weight Exam General Appearance: well developed/nourished, no apparent distress, alert, awake Respiratory: normal breath sounds, chest non-tender, no respiratory distress Cardiovascular: regular rate/rhythm, normal peripheral pulses Gastrointestinal: normal bowel sounds, soft, non-tender Extremities: no edema Nutrition Nutrition: P.O. diet Current Medications: Current Medications Sig/Stefan Start time Last Medication Dose Route Stop Time Status Admin Amlodipine Besylate 5 MG DAILY 12/06 09 AC 12/07 PO 09 Enoxaparin Sodium 40 MG DAILY 12/06 09 AC 12/06 SC 0842 Hydrocortisone 25 MG Q12 12/07 0900 AC 12/07 Sodium Succinate IV 09 Hydrocortisone 100 MG .STK-MED ONE 12/06 1642 DC Sodium Succinate IV 12/06 1643 Hydrocortisone 50 MG Q12 12/06 1002 DC 12/06 Sodium Succinate IV 211 Levothyroxine Sodium 0.075 MG DAILY AC 12/06 1400 AC 12/07 PO 0613 Lisinopril 10 MG DAILY 12/06 0900 AC 12/07 PO 0929 Lorazepam 2 MG ONE ONE 12/07 0830 DC 12/07 IV 12/07 0831 1009 Magnesium Oxide 400 MG BID 12/06 0900 DC 12/06 PO 12/06 2300 2116 Melatonin 5 MG AT BEDTIME 12/05 2345 AC 12/06 PO 211 Midazolam HCl 2 MG ONCE ONE 12/07 1030 DC IV 12/07 1031 Pantoprazole Sodium 40 MG DAILY 12/05 2130 AC 12/07 IV 0928 Sodium Chloride 1,000 MG TID 12/07 09 DC 12/07 PO 0929 Sodium Chloride 3,000 MG TID 12/06 09 DC 12/06 PO 211 Impression/Plan Impression/Problem List Impression: Patient is a 57-year-old male with past medical history significant for hypertension with recent changes in antihypertensive regimen presented to [facility] due to low sodium levels on follow-up labs. Patient was asked to decrease free water intake in his recent ER visit. He reportedly had increased thirst and increased urination lately. The only symptom he had his dizziness and lightheadedness without any seizures/confusion lately. Vital signs at admission are stable. Physical examination is unremarkable. Labs due to sodium of 118 with serum osmolality of 252 and a urine osmolality of 5-1. Urine sodium is 29. Toxicology is positive for cannabis. Chest x-ray is normal. CT chest abdomen and pelvis without contrast did show cysts in liver and kidney along with 2 mm calcified nodule in the right lung. Assessment: 1. 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 HTN Plan: * Na level improved to 130 today * Per cardiology recommendations with cut down on the hydrocortisoen to 25 BID iv, with switch to Hydrocortisone po 20 mg at 8 am and 10 mg at 4 pm tomorrow. * Patient agreed to obtain Head- MRI, to have definitive diagnosis and to rule out apoplexy * Will give low dose Ativan prior to MRI to relive anxiety * Will discontinue Na tablets and repeat Na level today * Per nephrology will change fluid restriction to 1200ml/ day * Will repeat free T4 tomorrow to adjust synthroid dose * Nephrology and endocrinology on board * Per carpenter and joiner if sodium goes up quickly to give Lasix (we can start with 20 po twice a day) * Spoke with patient orthopedist at [place], Dr. Gissel Howell regarding left knee implant, it was confirmed that the implant is compatible with MRI. HTN Continue Lisinopril and amlodipine. DVT prophylaxis SC lovenox code status full code Problem List: 1. Hypertension 2. Hyponatremia Pain Ratin Tomorrow's Labs & Rationales: BEP Plan DVT/Prophylaxis: mechanical, pharmacological
[2017-12-07 08:00] VITALS: BP 130/80
--- NOTE | 2017-12-07 09:39 | PN- Pulmonary ---
Subjective HPI/Critical Care Issues: Doing better Events and data from yesterday noted Discussed with Objective Current Medications: Current Medications Sig/Stefan Start time Last Medication Dose Route Stop Time Status Admin Amlodipine Besylate 5 MG DAILY 12/06 09 AC 12/07 PO 0929 Enoxaparin Sodium 40 MG DAILY 12/06 0900 AC 12/06 SC 0842 Hydrocortisone 50 MG Q12 12/06 0940 DC PO Hydrocortisone 25 MG Q12 12/07 0900 AC 12/07 Sodium Succinate IV 0928 Hydrocortisone 100 MG .STK-MED ONE 12/06 1642 DC Sodium Succinate IV 12/06 1643 Hydrocortisone 50 MG Q12 12/06 1002 DC 12/06 Sodium Succinate IV 2116 Levothyroxine Sodium 0.075 MG DAILY AC 12/06 1400 AC 12/07 PO 0613 Lisinopril 10 MG DAILY 12/06 0900 AC 12/07 PO 0929 Lorazepam 2 MG ONE ONE 12/07 0830 DC IV 12/07 0831 Magnesium Oxide 400 MG BID 12/06 0900 DC 12/06 PO 12/06 2300 2116 Melatonin 5 MG AT BEDTIME 12/05 2345 AC 12/06 PO 2116 Pantoprazole Sodium 40 MG DAILY 12/05 2130 AC 12/07 IV 0928 Sodium Chloride 1,000 MG TID 12/07 0900 AC 12/07 PO 0929 Sodium Chloride 3,000 MG TID 12/06 0900 DC 12/06 PO 2115 Vital Signs & I&O Last 24 Hrs of Vitals and I&O: Vital Signs Date Time Temp Pulse Resp B/P B/P Pulse O2 O2 Flow FiO2 Mean Ox Delivery Rate 12/07 09 76 129/80 12/07 0929 77 129/80 12/07 08 100 Room Air 12/07 0800 97.4 78 20 130/80 100 Room Air 12/07 0400 96 Room Air 12/07 0000 98 Room Air 12/07 0000 97.8 85 20 110/60 98 Room Air 12/06 1600 97 Room Air 12/06 1600 97.3 92 16 104/60 98 Room Air 12/06 1200 97 Room Air Intake & Output 12/07 1600 12/07 0800 06 0000 Intake Total 120 180 Output Total Balance 120 180 Intake, IV Intake, Oral 120 180 Output, Urine Laboratory Tests 12/07 12/06 12/06 0400 2000 1600 Chemistry Sodium (137 - 145 mmol/L) 130 L 125 L Cancelled Potassium (3.5 - 5.1 mmol/L) 4.9 Cancelled Chloride (98 - 107 mmol/L) 99 Cancelled Carbon Dioxide (22 - 30 mmol/L) 22 Cancelled Anion Gap (5 - 16) 9 Cancelled BUN (9 - 20 mg/dL) 13 Cancelled Creatinine (0.7 - 1.2 mg/dL) 0.7 Cancelled Estimated GFR (>60 ml/min) > 60 BUN/Creatinine Ratio Cancelled Glucose (65 - 99 mg/dL) 104 H Calcium (8.4 - 10.2 mg/dL) 8.6 Phosphorus (2.5 - 4.5 mg/dL) 4.2 Magnesium (1.6 - 2.3 mg/dL) 2.3 Total Bilirubin (0.2 - 1.3 mg/dL) 0.4 AST (17 - 59 U/L) 78 H ALT (21 - 72 U/L) 139 H Albumin (3.5 - 5.0 g/dL) 3.5 Hematology CBC w Diff NO MAN DIFF REQ WBC (4.8 - 10.8 /CUMM) 5.4 RBC (4.70 - 6.10 /CUMM) 4.13 L Hgb (14.0 - 18.0 G/DL) 13.1 L Hct (42 - 52 %) 38.1 L MCV (80.0 - 94.0 FL) 92.2 MCH (27.0 - 31.0 PG) 31.6 H MCHC (33.0 - 37.0 G/DL) 34.3 RDW (11.5 - 14.5 %) 12.8 Plt Count (130 - 400 /CUMM) 191 MPV (7.4 - 10.4 FL) 9.0 Gran % (42.2 - 75.2 %) 73.0 Lymphocytes % (20.5 - 51.1 %) 19.4 L Monocytes % (1.7 - 9.3 %) 6.8 Eosinophils % (0 - 5 %) 0.5 Basophils % (0.0 - 2.0 %) 0.3 Absolute Granulocytes (1.4 - 6.5 /CUMM) 3.9 Absolute Lymphocytes (1.2 - 3.4 /CUMM) 1.0 L Absolute Monocytes (0.10 - 0.60 /CUMM) 0.4 Absolute Eosinophils (0.0 - 0.7 /CUMM) 0 Absolute Basophils (0.0 - 0.2 /CUMM) 0 12/06 12/06 12/06 12/06 1353 1000 1000 0300 Chemistry Sodium (137 - 145 mmol/L) 124 L 122 L Cancelled Potassium (3.5 - 5.1 mmol/L) 4.3 4.0 Chloride (98 - 107 mmol/L) 92 L 94 L Carbon Dioxide (22 - 30 mmol/L) 21 L 21 L Anion Gap (5 - 16) 10 7 BUN (9 - 20 mg/dL) 11 11 Creatinine (0.7 - 1.2 mg/dL) 0.7 0.6 L Estimated GFR (>60 ml/min) > 60 > 60 BUN/Creatinine Ratio (7 - 25 %) 15.7 18.3 ACTH Stimulation Pending 12/06 12/05 12/05 0300 2250 2010 Chemistry Sodium (137 - 145 mmol/L) 123 L 118 *L 118 *L Potassium (3.5 - 5.1 mmol/L) 4.0 4.1 Chloride (98 - 107 mmol/L) 93 L 85 L Carbon Dioxide (22 - 30 mmol/L) 21 L 22 Anion Gap (5 - 16) 9 11 BUN (9 - 20 mg/dL) 11 12 Creatinine (0.7 - 1.2 mg/dL) 0.6 L 0.7 Estimated GFR (>60 ml/min) > 60 > 60 Glucose (65 - 99 mg/dL) 92 105 H Calcium (8.4 - 10.2 mg/dL) 7.9 L 8.6 Phosphorus (2.5 - 4.5 mg/dL) 3.5 4.0 Magnesium (1.6 - 2.3 mg/dL) 1.8 1.8 Total Bilirubin (0.2 - 1.3 mg/dL) 0.7 0.6 AST (17 - 59 U/L) 93 H 104 H ALT (21 - 72 U/L) 144 H 155 H Albumin (3.5 - 5.0 g/dL) 3.3 L 3.6 Prolactin (3.7 - 17.9 ng/mL) 18.9 H Total Testosterone (71.8 - 623 ng/dL) 22.3 L Cortisol AM Sample (4.46 - 22.7 ug/dL) 0.8 L Hematology CBC w Diff NO MAN DIFF REQ WBC (4.8 - 10.8 /CUMM) 4.4 L RBC (4.70 - 6.10 /CUMM) 4.05 L Hgb (14.0 - 18.0 G/DL) 12.9 L Hct (42 - 52 %) 37.2 L MCV (80.0 - 94.0 FL) 91.9 MCH (27.0 - 31.0 PG) 31.7 H MCHC (33.0 - 37.0 G/DL) 34.5 RDW (11.5 - 14.5 %) 12.3 Plt Count (130 - 400 /CUMM) 155 MPV (7.4 - 10.4 FL) 9.7 Gran % (42.2 - 75.2 %) 56.5 Lymphocytes % (20.5 - 51.1 %) 31.3 Monocytes % (1.7 - 9.3 %) 9.5 H Eosinophils % (0 - 5 %) 2.4 Basophils % (0.0 - 2.0 %) 0.3 Absolute Granulocytes (1.4 - 6.5 /CUMM) 2.5 Absolute Lymphocytes (1.2 - 3.4 /CUMM) 1.4 Absolute Monocytes (0.10 - 0.60 /CUMM) 0.4 Absolute Eosinophils (0.0 - 0.7 /CUMM) 0.1 Absolute Basophils (0.0 - 0.2 /CUMM) 0 30 12/05 1920 1920 Toxicology Urine Opiates Screen (>2000 NG/ML) < 100 Methadone Screen (>300 NG/ML) < 40 Barbiturate Screen (>200 NG/ML) < 60 Ur Phencyclidine Scrn (>25 NG/ML) < 6.00 Amphetamines Screen (>1000 NG/ML) < 100 U Benzodiazepines Scrn (>200 NG/ML) < 85 Urine Cocaine Screen (>300 NG/ML) < 50 Urine Cannabis Screen (>50 NG/ML) 78.90 H Urines Urine Color (YEL,AMB,STR) YEL Urine Clarity (CLEAR) CLEAR Urine pH (5.0 - 8.0) 6.0 Ur Specific [place] (1.001 - 1.035) 1.025 Urine Protein (NEG,<30 MG/DL) NEG Urine Ketones (NEG) NEG Urine Nitrite (NEG) NEG Urine Bilirubin (NEG) NEG Urine Urobilinogen (0.1 - 1.0 EU/dl) 0.2 Ur Leukocyte Esterase (NEG) NEG Ur Microscopic EXAM NOT REQUIRED Urine Hemoglobin (NEG) NEG Urine Osmolality (300 - 1000 MOSM/KG) 518 Ur Random Creatinine (mg/dL) 161.0 Ur Random Sodium (30 - 90 mmol/L) 30 Ur Random Potassium (mmol/L) 49.2 Fraction Sodium Excret (<1% %) 0.1 Urine Glucose (N MG/DL) NEG 12/05 1620 Chemistry Sodium (137 - 145 mmol/L) 118 *L Potassium (3.5 - 5.1 mmol/L) 4.2 Chloride (98 - 107 mmol/L) 86 L Carbon Dioxide (22 - 30 mmol/L) 22 Anion Gap (5 - 16) 10 BUN (9 - 20 mg/dL) 12 Creatinine (0.7 - 1.2 mg/dL) 0.7 Estimated GFR (>60 ml/min) > 60 BUN/Creatinine Ratio (7 - 25 %) 17.1 Glucose (65 - 99 mg/dL) 118 H Serum Osmolality (285 - 295 MOSM/KG) 252 L Uric Acid (3.5 - 8.5 mg/dL) 3.8 Calcium (8.4 - 10.2 mg/dL) 8.8 Total Bilirubin (0.2 - 1.3 mg/dL) 0.7 AST (17 - 59 U/L) 111 H ALT (21 - 72 U/L) 161 H Alkaline Phosphatase (< 127 U/L) 54 Hdy-N-Oqxjwncoqwi Pept (<125 pg/mL) < 11.1 Total Protein (6.3 - 8.2 g/dL) 6.5 Albumin (3.5 - 5.0 g/dL) 3.8 Globulin (1.9 - 4.2 gm/dL) 2.7 Albumin/Globulin Ratio (1.1 - 2.2 %) 1.4 TSH (0.270 - 4.200 uIU/mL) 0.354 Free T4 (0.64 - 1.79 ng/dL) 0.44 L Hematology CBC w Diff NO MAN DIFF REQ WBC (4.8 - 10.8 /CUMM) 5.4 RBC (4.70 - 6.10 /CUMM) 4.40 L Hgb (14.0 - 18.0 G/DL) 13.8 L Hct (42 - 52 %) 39.6 L MCV (80.0 - 94.0 FL) 90.1 MCH (27.0 - 31.0 PG) 31.5 H MCHC (33.0 - 37.0 G/DL) 35.0 RDW (11.5 - 14.5 %) 12.3 Plt Count (130 - 400 /CUMM) 186 MPV (7.4 - 10.4 FL) 9.3 Gran % (42.2 - 75.2 %) 59.6 Lymphocytes % (20.5 - 51.1 %) 28.0 Monocytes % (1.7 - 9.3 %) 8.8 Eosinophils % (0 - 5 %) 3.2 Basophils % (0.0 - 2.0 %) 0.4 Absolute Granulocytes (1.4 - 6.5 /CUMM) 3.2 Absolute Lymphocytes (1.2 - 3.4 /CUMM) 1.5 Absolute Monocytes (0.10 - 0.60 /CUMM) 0.5 Absolute Eosinophils (0.0 - 0.7 /CUMM) 0.2 Absolute Basophils (0.0 - 0.2 /CUMM) 0 Serology Hepatitis A IgM Ab (NONREACTIVE) NONREACTIVE Hep Bs Antigen (NONREACTIVE) NONREACTIVE Hep B Core IgM Ab Conf (NONREACTIVE) NONREACTIVE Hepatitis C Antibody (NONREACTIVE) NONREACTIVE Toxicology Acetaminophen (10.0 - 30.0 ug/mL) < 10.0 L Microbiology Date/Time Procedure - Status Source Growth 12/06 2219 Surveillance Culture - COMP GI 12/05 2044 Surveillance Culture - COMP UPPER RESP Impression/Plan Impression/Plan Impression/Plan: General Appearance Alert, Oriented X3, Cooperative, No Acute Distress Skin No Rashes Skin Temp/Moisture Exam: Warm/Dry HEENT Atraumatic, PERRLA, EOMI Neck Supple Cardiovascular Normal S1, Normal S2, No Murmurs Lungs Clear to Auscultation, Normal Air Movement Abdomen Normal Bowel Sounds, Soft, No Tenderness Neurological Sensation Intact, atrophy of right lower extremity muscles with preserved strength 4/5. Extremities No Clubbing, No Cyanosis, No Edema Vascular Normal Pulses SIGNIFICANT DATA CT scan of the chest abdomen and pelvis which was done without oral IV contrast did not show any significant lymphadenopathy, hepatic cyst, atrial free of his right hemipelvis and hip due to his postpolio. No major lung nodules with an old benign 2 mm calcified nodule. IMPRESSION This is a gentleman with history of hypertension, GERD, childhood polio with right-sided weakness, rhinitis with hayfever, has had some mild headache lightheadedness for a week. He has been on lisinopril and amlodipine in the recent past. He does drink many bottles of water at home dose as he has coffee. He also admits to using marijuana regularly on the weekends Since he came into the emergency room was noted to have profound hyponatremia with signs and symptoms suggestive of SIADH. This could be related to probable severe cortisol insufficiency as he has asthenia in the recent past. Patient does also drink excessive water. His investigations so far reveals profound hypocortisolism and hypopit and work up ongoing and endo consult appretiated. Prolactin level mildly elevated, MRI pending His other issues include lightheadedness which may be related to hyponatremia, transaminitis which needs to be evaluated if persistent, hypertension and GERD. RECOMMENDATION See endo rec Replacement rx for steroids and thyroid replacement MRI today Continue to monitor his sodium, qd now as he is stable Further sodium mgt per endo and renal Stable to go to the floor today Pt to refrain from further Marijuana use
--- NOTE | 2017-12-07 09:45 | PN- Endocrinology ---
See Addendum Assessment/Plan Endoscopy Assessment: 57-year-old male with Hx of hypertension, GERD, left total knee replacement and 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 In ER, his sodium level was 118. The work-up demonstrated low cortisol, low free T4 along with inappropriate low normal TSH, low testosrterone and low FSH and LH suggestive of hypopituitarism. His prolactin level is mildly elevated. CT of head done on 12/01 was unremarkable. Urine drug screen was positive for Marijuana. 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 However, Hypothalamic-pituitary lesions needs to be r/o. He was placed on hydrocortisone 50 mg iv every 12 hours, levothyroxine 75 mcg po daily. He felt better. His sodium level is up to 130 this morning. Plan: 1. MRI of pituitary w and w/o contrast; 2. decrease Hydrocortisone to 25 mg iv every 12 hours today; 3. continue Levothyroxine 75 mcg po daily; 4. repeat free T4 tomorrow am; 5. recommend decreasing salt tablets 6. continue monitoring his electrolytes; 7. most likely he will be on Hydrocortisone po 20 mg at 8 am and 10 mg at 4 pm tomorrow. 8 testosterone replacement will be initiated as outpatient. will follow. Subjective Subjective: He felt better this morning. Objective Last 24 Hrs of Vital Signs/I&O Vital Signs Date Time Temp Pulse Resp B/P B/P Pulse O2 O2 Flow FiO2 Mean Ox Delivery Rate 12/07 0929 76 129/80 12/07 0929 77 129/80 12/07 0800 100 Room Air 12/07 0800 97.4 78 20 130/80 100 Room Air 12/07 0400 96 Room Air 06 0000 98 Room Air 06/ 0000 97.8 85 20 110/60 98 Room Air 12/06 1600 97 Room Air 12/06 1600 97.3 92 16 104/60 98 Room Air 12/06 1200 97 Room Air Intake & Output 12/07 1600 12/07 0800 12/07 0000 Intake Total 120 180 Output Total Balance 120 180 Intake, IV Intake, Oral 120 180 Output, Urine Patient 202 lb Weight Results Pertinent Lab/Kwesi Results: Laboratory Tests 12/07 12/06 12/06 0400 2000 1600 Chemistry Sodium (137 - 145 mmol/L) 130 L 125 L Cancelled Potassium (3.5 - 5.1 mmol/L) 4.9 Cancelled Chloride (98 - 107 mmol/L) 99 Cancelled Carbon Dioxide (22 - 30 mmol/L) 22 Cancelled Anion Gap (5 - 16) 9 Cancelled BUN (9 - 20 mg/dL) 13 Cancelled Creatinine (0.7 - 1.2 mg/dL) 0.7 Cancelled Estimated GFR (>60 ml/min) > 60 BUN/Creatinine Ratio Cancelled Glucose (65 - 99 mg/dL) 104 H Calcium (8.4 - 10.2 mg/dL) 8.6 Phosphorus (2.5 - 4.5 mg/dL) 4.2 Magnesium (1.6 - 2.3 mg/dL) 2.3 Total Bilirubin (0.2 - 1.3 mg/dL) 0.4 AST (17 - 59 U/L) 78 H ALT (21 - 72 U/L) 139 H Albumin (3.5 - 5.0 g/dL) 3.5 Hematology CBC w Diff NO MAN DIFF REQ WBC (4.8 - 10.8 /CUMM) 5.4 RBC (4.70 - 6.10 /CUMM) 4.13 L Hgb (14.0 - 18.0 G/DL) 13.1 L Hct (42 - 52 %) 38.1 L MCV (80.0 - 94.0 FL) 92.2 MCH (27.0 - 31.0 PG) 31.6 H MCHC (33.0 - 37.0 G/DL) 34.3 RDW (11.5 - 14.5 %) 12.8 Plt Count (130 - 400 /CUMM) 191 MPV (7.4 - 10.4 FL) 9.0 Gran % (42.2 - 75.2 %) 73.0 Lymphocytes % (20.5 - 51.1 %) 19.4 L Monocytes % (1.7 - 9.3 %) 6.8 Eosinophils % (0 - 5 %) 0.5 Basophils % (0.0 - 2.0 %) 0.3 Absolute Granulocytes (1.4 - 6.5 /CUMM) 3.9 Absolute Lymphocytes (1.2 - 3.4 /CUMM) 1.0 L Absolute Monocytes (0.10 - 0.60 /CUMM) 0.4 Absolute Eosinophils (0.0 - 0.7 /CUMM) 0 Absolute Basophils (0.0 - 0.2 /CUMM) 0 12/06 12/06 12/06 1353 1000 1000 Chemistry Sodium (137 - 145 mmol/L) 124 L 122 L Potassium (3.5 - 5.1 mmol/L) 4.3 4.0 Chloride (98 - 107 mmol/L) 92 L 94 L Carbon Dioxide (22 - 30 mmol/L) 21 L 21 L Anion Gap (5 - 16) 10 7 BUN (9 - 20 mg/dL) 11 11 Creatinine (0.7 - 1.2 mg/dL) 0.7 0.6 L Estimated GFR (>60 ml/min) > 60 > 60 BUN/Creatinine Ratio (7 - 25 %) 15.7 18.3 ACTH Stimulation Pending
--- NOTE | 2017-12-07 10:46 | PN- Nephrology ---
Assessment/Plan Nephrology Assessment: 1. 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 Would discontinue sodium chloride tablets and continue to monitor serum sodium level 2. Will gradually liberalize fluid intake i.e. to 1200 cc per day 3. For MRI today 4. Hormone replacement per Endocrinology Subjective Subjective: Patient feeling better today with no headaches or other complaints. Endocrinology consultation noted and appreciated. Serum sodium continues to improve at appropriate level. He is now on steroids and thyroid replacement. Objective Vital Signs and I&Os Vital Signs Date Time Temp Pulse Resp B/P B/P Pulse O2 O2 Flow FiO2 Mean Ox Delivery Rate 12/07 09 76 129/80 12/07 0929 77 129/80 12/07 0800 100 Room Air 12/07 0800 97.4 78 20 130/80 100 Room Air 12/07 0400 96 Room Air 12/07 0000 98 Room Air 12/07 0000 97.8 85 20 110/60 98 Room Air 12/06 1600 97 Room Air 12/06 1600 97.3 92 16 104/60 98 Room Air 12/06 1200 97 Room Air Intake & Output 12/07 1600 12/07 0400 12/06 1600 12/06 0400 12/05 1600 12/05 0400 Intake Total 120 180 472 100 Output Total 1300 100 Balance 120 180 -828 0 Intake, IV 32 Intake, Oral 120 180 440 100 Number 0 Bowel Movements Output, Urine 1300 100 Patient 202 lb 203 lb Weight Physical Exam: General: Well-developed, pleasant white male in NAD Skin: No rash or jaundice, turgor good HEENT: Conjunctivae pink, sclerae anicteric, mucous membranes moist Neck: Without masses or thyromegaly, no supraclavicular or cervical adenopathy Chest: Clear to P&A Heart: Regular rate and rhythm without S3 or rub Abdomen: Soft and nontender without palpable masses or organomegaly Extremities: Without cyanosis or edema; the right lower extremity is atrophic and there is a well-healed surgical scar over the left knee Neuro: Cognitively intact, no focal findings, no asterixis or myoclonus, cranial nerves intact with no hemianopsia Results Pertinent Lab Results: Laboratory Tests 12/07 12/06 12/06 0400 1999 1600 Chemistry Sodium (137 - 145 mmol/L) 130 L 125 L Cancelled Potassium (3.5 - 5.1 mmol/L) 4.9 Cancelled Chloride (98 - 107 mmol/L) 99 Cancelled Carbon Dioxide (22 - 30 mmol/L) 22 Cancelled Anion Gap (5 - 16) 9 Cancelled BUN (9 - 20 mg/dL) 13 Cancelled Creatinine (0.7 - 1.2 mg/dL) 0.7 Cancelled Estimated GFR (>60 ml/min) > 60 BUN/Creatinine Ratio Cancelled Glucose (65 - 99 mg/dL) 104 H Calcium (8.4 - 10.2 mg/dL) 8.6 Phosphorus (2.5 - 4.5 mg/dL) 4.2 Magnesium (1.6 - 2.3 mg/dL) 2.3 Total Bilirubin (0.2 - 1.3 mg/dL) 0.4 AST (17 - 59 U/L) 78 H ALT (21 - 72 U/L) 139 H Albumin (3.5 - 5.0 g/dL) 3.5 Hematology CBC w Diff NO MAN DIFF REQ WBC (4.8 - 10.8 /CUMM) 5.4 RBC (4.70 - 6.10 /CUMM) 4.13 L Hgb (14.0 - 18.0 G/DL) 13.1 L Hct (42 - 52 %) 38.1 L MCV (80.0 - 94.0 FL) 92.2 MCH (27.0 - 31.0 PG) 31.6 H MCHC (33.0 - 37.0 G/DL) 34.3 RDW (11.5 - 14.5 %) 12.8 Plt Count (130 - 400 /CUMM) 191 MPV (7.4 - 10.4 FL) 9.0 Gran % (42.2 - 75.2 %) 73.0 Lymphocytes % (20.5 - 51.1 %) 19.4 L Monocytes % (1.7 - 9.3 %) 6.8 Eosinophils % (0 - 5 %) 0.5 Basophils % (0.0 - 2.0 %) 0.3 Absolute Granulocytes (1.4 - 6.5 /CUMM) 3.9 Absolute Lymphocytes (1.2 - 3.4 /CUMM) 1.0 L Absolute Monocytes (0.10 - 0.60 /CUMM) 0.4 Absolute Eosinophils (0.0 - 0.7 /CUMM) 0 Absolute Basophils (0.0 - 0.2 /CUMM) 0 12/06 12/06 12/06 12/06 1353 1000 1000 0300 Chemistry Sodium (137 - 145 mmol/L) 124 L 122 L Cancelled Potassium (3.5 - 5.1 mmol/L) 4.3 4.0 Chloride (98 - 107 mmol/L) 92 L 94 L Carbon Dioxide (22 - 30 mmol/L) 21 L 21 L Anion Gap (5 - 16) 10 7 BUN (9 - 20 mg/dL) 11 11 Creatinine (0.7 - 1.2 mg/dL) 0.7 0.6 L Estimated GFR (>60 ml/min) > 60 > 60 BUN/Creatinine Ratio (7 - 25 %) 15.7 18.3 ACTH Stimulation Pending 12/06 12/05 12/05 0300 2250 2010 Chemistry Sodium (137 - 145 mmol/L) 123 L 118 *L 118 *L Potassium (3.5 - 5.1 mmol/L) 4.0 4.1 Chloride (98 - 107 mmol/L) 93 L 85 L Carbon Dioxide (22 - 30 mmol/L) 21 L 22 Anion Gap (5 - 16) 9 11 BUN (9 - 20 mg/dL) 11 12 Creatinine (0.7 - 1.2 mg/dL) 0.6 L 0.7 Estimated GFR (>60 ml/min) > 60 > 60 Glucose (65 - 99 mg/dL) 92 105 H Calcium (8.4 - 10.2 mg/dL) 7.9 L 8.6 Phosphorus (2.5 - 4.5 mg/dL) 3.5 4.0 Magnesium (1.6 - 2.3 mg/dL) 1.8 1.8 Total Bilirubin (0.2 - 1.3 mg/dL) 0.7 0.6 AST (17 - 59 U/L) 93 H 104 H ALT (21 - 72 U/L) 144 H 155 H Albumin (3.5 - 5.0 g/dL) 3.3 L 3.6 Prolactin (3.7 - 17.9 ng/mL) 18.9 H Total Testosterone (71.8 - 623 ng/dL) 22.3 L Cortisol AM Sample (4.46 - 22.7 ug/dL) 0.8 L Hematology CBC w Diff NO MAN DIFF REQ WBC (4.8 - 10.8 /CUMM) 4.4 L RBC (4.70 - 6.10 /CUMM) 4.05 L Hgb (14.0 - 18.0 G/DL) 12.9 L Hct (42 - 52 %) 37.2 L MCV (80.0 - 94.0 FL) 91.9 MCH (27.0 - 31.0 PG) 31.7 H MCHC (33.0 - 37.0 G/DL) 34.5 RDW (11.5 - 14.5 %) 12.3 Plt Count (130 - 400 /CUMM) 155 MPV (7.4 - 10.4 FL) 9.7 Gran % (42.2 - 75.2 %) 56.5 Lymphocytes % (20.5 - 51.1 %) 31.3 Monocytes % (1.7 - 9.3 %) 9.5 H Eosinophils % (0 - 5 %) 2.4 Basophils % (0.0 - 2.0 %) 0.3 Absolute Granulocytes (1.4 - 6.5 /CUMM) 2.5 Absolute Lymphocytes (1.2 - 3.4 /CUMM) 1.4 Absolute Monocytes (0.10 - 0.60 /CUMM) 0.4 Absolute Eosinophils (0.0 - 0.7 /CUMM) 0.1 Absolute Basophils (0.0 - 0.2 /CUMM) 0 30 0530 1920 1920 Toxicology Urine Opiates Screen (>2000 NG/ML) < 100 Methadone Screen (>300 NG/ML) < 40 Barbiturate Screen (>200 NG/ML) < 60 Ur Phencyclidine Scrn (>25 NG/ML) < 6.00 Amphetamines Screen (>1000 NG/ML) < 100 U Benzodiazepines Scrn (>200 NG/ML) < 85 Urine Cocaine Screen (>300 NG/ML) < 50 Urine Cannabis Screen (>50 NG/ML) 78.90 H Urines Urine Color (YEL,AMB,STR) YEL Urine Clarity (CLEAR) CLEAR Urine pH (5.0 - 8.0) 6.0 Ur Specific [place] (1.001 - 1.035) 1.025 Urine Protein (NEG,<30 MG/DL) NEG Urine Ketones (NEG) NEG Urine Nitrite (NEG) NEG Urine Bilirubin (NEG) NEG Urine Urobilinogen (0.1 - 1.0 EU/dl) 0.2 Ur Leukocyte Esterase (NEG) NEG Ur Microscopic EXAM NOT REQUIRED Urine Hemoglobin (NEG) NEG Urine Osmolality (300 - 1000 MOSM/KG) 518 Ur Random Creatinine (mg/dL) 161.0 Ur Random Sodium (30 - 90 mmol/L) 30 Ur Random Potassium (mmol/L) 49.2 Fraction Sodium Excret (<1% %) 0.1 Urine Glucose (N MG/DL) NEG 12/05 1620 Chemistry Sodium (137 - 145 mmol/L) 118 *L Potassium (3.5 - 5.1 mmol/L) 4.2 Chloride (98 - 107 mmol/L) 86 L Carbon Dioxide (22 - 30 mmol/L) 22 Anion Gap (5 - 16) 10 BUN (9 - 20 mg/dL) 12 Creatinine (0.7 - 1.2 mg/dL) 0.7 Estimated GFR (>60 ml/min) > 60 BUN/Creatinine Ratio (7 - 25 %) 17.1 Glucose (65 - 99 mg/dL) 118 H Serum Osmolality (285 - 295 MOSM/KG) 252 L Uric Acid (3.5 - 8.5 mg/dL) 3.8 Calcium (8.4 - 10.2 mg/dL) 8.8 Total Bilirubin (0.2 - 1.3 mg/dL) 0.7 AST (17 - 59 U/L) 111 H ALT (21 - 72 U/L) 161 H Alkaline Phosphatase (< 127 U/L) 54 Vev-U-Jdhzzsrehho Pept (<125 pg/mL) < 11.1 Total Protein (6.3 - 8.2 g/dL) 6.5 Albumin (3.5 - 5.0 g/dL) 3.8 Globulin (1.9 - 4.2 gm/dL) 2.7 Albumin/Globulin Ratio (1.1 - 2.2 %) 1.4 TSH (0.270 - 4.200 uIU/mL) 0.354 Free T4 (0.64 - 1.79 ng/dL) 0.44 L Hematology CBC w Diff NO MAN DIFF REQ WBC (4.8 - 10.8 /CUMM) 5.4 RBC (4.70 - 6.10 /CUMM) 4.40 L Hgb (14.0 - 18.0 G/DL) 13.8 L Hct (42 - 52 %) 39.6 L MCV (80.0 - 94.0 FL) 90.1 MCH (27.0 - 31.0 PG) 31.5 H MCHC (33.0 - 37.0 G/DL) 35.0 RDW (11.5 - 14.5 %) 12.3 Plt Count (130 - 400 /CUMM) 186 MPV (7.4 - 10.4 FL) 9.3 Gran % (42.2 - 75.2 %) 59.6 Lymphocytes % (20.5 - 51.1 %) 28.0 Monocytes % (1.7 - 9.3 %) 8.8 Eosinophils % (0 - 5 %) 3.2 Basophils % (0.0 - 2.0 %) 0.4 Absolute Granulocytes (1.4 - 6.5 /CUMM) 3.2 Absolute Lymphocytes (1.2 - 3.4 /CUMM) 1.5 Absolute Monocytes (0.10 - 0.60 /CUMM) 0.5 Absolute Eosinophils (0.0 - 0.7 /CUMM) 0.2 Absolute Basophils (0.0 - 0.2 /CUMM) 0 Serology Hepatitis A IgM Ab (NONREACTIVE) NONREACTIVE Hep Bs Antigen (NONREACTIVE) NONREACTIVE Hep B Core IgM Ab Conf (NONREACTIVE) NONREACTIVE Hepatitis C Antibody (NONREACTIVE) NONREACTIVE Toxicology Acetaminophen (10.0 - 30.0 ug/mL) < 10.0 L
--- NOTE | 2017-12-07 12:20 | MRI REPORT ---
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 COMPARISON: Head CT December 01, 2017. TECHNIQUE: MRI of the brain was obtained using routine sequences before and after the intravenous administration of 10 mL of Gadavist. FINDINGS: Large hypoenhancing sellar/suprasellar lesion inseparable from the pituitary gland measuring up to 1.3 cm CC by 1.7 cm TV by 1.4 cm AP that is most suggestive of a pituitary macroadenoma. There is no calcification in this location on the recent head CT. The lesion results in rightward deviation of the infundibulum and contacts the undersurface of optic chiasm which is mildly uplifted. The lesion contacts the left cavernous ICA without definite evidence of cavernous sinus invasion. No additional pathologic enhancement intracranially. There is no hydrocephalus, extra-axial surface collection, or herniation. Assessment for parenchymal signal abnormality is very limited by the degree of artifact. There are T2 signal changes within the supratentorial white matter, most likely mild chronic microangiopathy. The major flow voids at the skull base are preserved. There is no acute infarct on diffusion-weighted imaging. The cerebellar tonsils are normally positioned. The craniocervical junction is normal. Osseous marrow signal intensity is homogenous. The visualized soft tissues are unremarkable. There is mucosal thickening within the left sphenoid sinus. Chronic traumatic deformity of the left lamina papyracea. IMPRESSION: - There is an up to 1.7 cm hypoenhancing sellar/suprasellar lesion inseparable from the pituitary gland that is most suggestive of a pituitary macroadenoma. The lesion results in rightward deviation of the infundibulum and contacts the undersurface of optic chiasm which is mildly uplifted. The lesion also contacts the left cavernous ICA without definite evidence of cavernous sinus invasion. - Motion degraded study with probable mild chronic microangiopathy. There is limited assessment for parenchymal signal abnormality given the degree of artifact on this study.
[2017-12-07 16:00] VITALS: BP 122/60
[2017-12-07 23:15] VITALS: BP 110/70
[2017-12-08 06:53] VITALS: BP 138/84
--- NOTE | 2017-12-08 09:03 | PN- Endocrinology ---
Assessment/Plan Endoscopy Assessment: Patient states he feels okay today. His headache is gone. His MRI of the head with and without gadolinium with attention to the pituitary shows a large hypoenhancing sellar and suprasellar sellar lesion inseparable from the pituitary gland measuring 1.3 x 1.7 x 1.4 cm. There is no calcification in this lesion. There is rightward deviation of the infundibulum and the lesion contacts the undersurface of the optic chiasm which is mildly uplifted. The lesion also contacts the left cavernous segment sinus without definite invasion of the cavernous sinus. The nature of this lesion is unclear. It is consistent with a pituitary adenoma but it could also represent hypophysitis. The unusual feature of this presentation in this particular patient is the fact that all his anterior pituitary axes were down including the pituitary adrenal axis, the pituitary gonadal axis, the pituitary thyroid axis. Even with a pituitary adenoma of this size there is often less damage to the pituitary hormones then in this patient. Patient does not have any involvement of the posterior pituitary which would cause diabetes insipidus but this is not always found in cases of her hypophysitis. Plan: Suggest that the patient will need further studies. Assessment markers of autoimmune or inflammatory disease should be considered. In addition to autoimmune hypophysitis tuberculosis and sarcoidosis can involve the pituitary gland. Studies should include a sedimentation rate, angiotensin-converting enzyme, antinuclear antibody, and pituitary antibodies, and tests for tuberculosis. The patient is on replacement therapy with thyroid hormone and hydrocortisone. With these in place his serum sodium should be coming up and he should not need to be on a fluid restriction.. Suggest today that we can change his adrenal hormone replacement therapy to hydrocortisone by mouth 20 mg in the a.m. before breakfast and 10 mg in the p.m. around suppertime. If the patient goes home he could go home on the above doses of this medication. In addition I would increase the patient's levothyroxine to 100 mcg daily. He will also need a prescription for this on discharge. Subjective Subjective: Feels okay Objective Last 24 Hrs of Vital Signs/I&O Vital Signs Date Time Temp Pulse Resp B/P B/P Pulse O2 O2 Flow FiO2 Mean Ox Delivery Rate 12/08 0653 97.9 80 16 138/84 94 Room Air 12/07 2315 98.0 84 20 110/70 95 Room Air 12/07 1600 96 Room Air 12/07 1600 98.0 69 21 122/60 96 Room Air 12/07 0929 76 129/80 12/07 0929 77 129/80 Intake & Output 12/08 1600 12/08 0800 12/08 0000 Intake Total 100 100 Output Total Balance 100 100 Intake, Oral 100 100 Patient 196 lb Weight Weight Bed scale Measurement Method Vital Signs Date Time Temp Pulse Resp B/P B/P Pulse O2 O2 Flow FiO2 Mean Ox Delivery Rate 12/08 0553 97.9 80 16 138/84 94 Room Air 12/07 2315 98.0 84 20 110/70 95 Room Air 12/07 1600 96 Room Air 12/07 1600 98.0 69 21 122/60 96 Room Air 12/07 0929 76 129/80 12/07 0929 77 129/80 Intake & Output 12/08 1600 12/08 0800 12/08 0000 Intake Total 100 100 Output Total Balance 100 100 Intake, Oral 100 100 Patient 196 lb Weight Weight Bed scale Measurement Method Physical Exam General Appearance: alert, awake, comfortable Head: normal appearance Neck: normal inspection Respiratory: normal breath sounds Cardiovascular: regular rate/rhythm Extremities: normal inspection Current Medications: Current Medications Sig/Stefan Start time Last Medication Dose Route Stop Time Status Admin Amlodipine Besylate 5 MG DAILY 12/06 899 AC 12/07 PO 0929 Enoxaparin Sodium 40 MG DAILY 12/06 09 AC 12/07 SC 1302 Hydrocortisone 25 MG Q12 12/07 0900 AC 12/07 Sodium Succinate IV 2042 Levothyroxine Sodium 0.075 MG DAILY AC 12/06 1400 AC 12/08 PO 0536 Lisinopril 10 MG DAILY 12/06 0900 AC 12/07 PO 0929 Melatonin 5 MG AT BEDTIME 12/05 2345 AC 12/06 PO 2116 Midazolam HCl 2 MG ONCE ONE 12/07 1030 DC 12/07 IV 12/07 1031 1030 Midazolam HCl 5 MG .STK-MED ONE 12/07 1018 DC IM 12/07 1019 Pantoprazole Sodium 40 MG DAILY 12/050 AC 12/07 IV 0928 Sodium Chloride 1,000 MG TID 12/07 0900 DC 12/07 PO 0929 Laboratory Tests 12/08 12/08 12/07 12/07 0620 0620 2020 1305 Chemistry Sodium (137 - 145 mmol/L) Pending 131 L 130 L Potassium Pending Chloride Pending Carbon Dioxide Pending Anion Gap Pending BUN Pending Creatinine Pending BUN/Creatinine Ratio Pending TSH Pending Free T4 Pending Insulin-like GF I Pending IGF I Z-Score (Male) Pending IGF I Z-Score (Female) Pending 12/07 12/06 12/06 0400 1999 1600 Chemistry Sodium (137 - 145 mmol/L) 130 L 125 L Cancelled Potassium (3.5 - 5.1 mmol/L) 4.9 Cancelled Chloride (98 - 107 mmol/L) 99 Cancelled Carbon Dioxide (22 - 30 mmol/L) 22 Cancelled Anion Gap (5 - 16) 9 Cancelled BUN (9 - 20 mg/dL) 13 Cancelled Creatinine (0.7 - 1.2 mg/dL) 0.7 Cancelled Estimated GFR (>60 ml/min) > 60 BUN/Creatinine Ratio Cancelled Glucose (65 - 99 mg/dL) 104 H Calcium (8.4 - 10.2 mg/dL) 8.6 Phosphorus (2.5 - 4.5 mg/dL) 4.2 Magnesium (1.6 - 2.3 mg/dL) 2.3 Total Bilirubin (0.2 - 1.3 mg/dL) 0.4 AST (17 - 59 U/L) 78 H ALT (21 - 72 U/L) 139 H Albumin (3.5 - 5.0 g/dL) 3.5 Hematology CBC w Diff NO MAN DIFF REQ WBC (4.8 - 10.8 /CUMM) 5.4 RBC (4.70 - 6.10 /CUMM) 4.13 L Hgb (14.0 - 18.0 G/DL) 13.1 L Hct (42 - 52 %) 38.1 L MCV (80.0 - 94.0 FL) 92.2 MCH (27.0 - 31.0 PG) 31.6 H MCHC (33.0 - 37.0 G/DL) 34.3 RDW (11.5 - 14.5 %) 12.8 Plt Count (130 - 400 /CUMM) 191 MPV (7.4 - 10.4 FL) 9.0 Gran % (42.2 - 75.2 %) 73.0 Lymphocytes % (20.5 - 51.1 %) 19.4 L Monocytes % (1.7 - 9.3 %) 6.8 Eosinophils % (0 - 5 %) 0.5 Basophils % (0.0 - 2.0 %) 0.3 Absolute Granulocytes (1.4 - 6.5 /CUMM) 3.9 Absolute Lymphocytes (1.2 - 3.4 /CUMM) 1.0 L Absolute Monocytes (0.10 - 0.60 /CUMM) 0.4 Absolute Eosinophils (0.0 - 0.7 /CUMM) 0 Absolute Basophils (0.0 - 0.2 /CUMM) 0 12/06 12/06 12/06 1353 1000 1000 Chemistry Sodium (137 - 145 mmol/L) 124 L 122 L Potassium (3.5 - 5.1 mmol/L) 4.3 4.0 Chloride (98 - 107 mmol/L) 92 L 94 L Carbon Dioxide (22 - 30 mmol/L) 21 L 21 L Anion Gap (5 - 16) 10 7 BUN (9 - 20 mg/dL) 11 11 Creatinine (0.7 - 1.2 mg/dL) 0.7 0.6 L Estimated GFR (>60 ml/min) > 60 > 60 BUN/Creatinine Ratio (7 - 25 %) 15.7 18.3 ACTH Stimulation (6 - 50 pg/mL) 13 Results Pertinent Lab/[facility] Results: Laboratory Tests 12/08 12/08 12/07 12/07 0620 0620 2019 1305 Chemistry Sodium (137 - 145 mmol/L) Pending 131 L 130 L Potassium Pending Chloride Pending Carbon Dioxide Pending Anion Gap Pending BUN Pending Creatinine Pending BUN/Creatinine Ratio Pending TSH Pending Free T4 Pending Insulin-like GF I Pending IGF I Z-Score (Male) Pending IGF I Z-Score (Female) Pending 12/07 12/06 12/06 0400 2000 1600 Chemistry Sodium (137 - 145 mmol/L) 130 L 125 L Cancelled Potassium (3.5 - 5.1 mmol/L) 4.9 Cancelled Chloride (98 - 107 mmol/L) 99 Cancelled Carbon Dioxide (22 - 30 mmol/L) 22 Cancelled Anion Gap (5 - 16) 9 Cancelled BUN (9 - 20 mg/dL) 13 Cancelled Creatinine (0.7 - 1.2 mg/dL) 0.7 Cancelled Estimated GFR (>60 ml/min) > 60 BUN/Creatinine Ratio Cancelled Glucose (65 - 99 mg/dL) 104 H Calcium (8.4 - 10.2 mg/dL) 8.6 Phosphorus (2.5 - 4.5 mg/dL) 4.2 Magnesium (1.6 - 2.3 mg/dL) 2.3 Total Bilirubin (0.2 - 1.3 mg/dL) 0.4 AST (17 - 59 U/L) 78 H ALT (21 - 72 U/L) 139 H Albumin (3.5 - 5.0 g/dL) 3.5 Hematology CBC w Diff NO MAN DIFF REQ WBC (4.8 - 10.8 /CUMM) 5.4 RBC (4.70 - 6.10 /CUMM) 4.13 L Hgb (14.0 - 18.0 G/DL) 13.1 L Hct (42 - 52 %) 38.1 L MCV (80.0 - 94.0 FL) 92.2 MCH (27.0 - 31.0 PG) 31.6 H MCHC (33.0 - 37.0 G/DL) 34.3 RDW (11.5 - 14.5 %) 12.8 Plt Count (130 - 400 /CUMM) 191 MPV (7.4 - 10.4 FL) 9.0 Gran % (42.2 - 75.2 %) 73.0 Lymphocytes % (20.5 - 51.1 %) 19.4 L Monocytes % (1.7 - 9.3 %) 6.8 Eosinophils % (0 - 5 %) 0.5 Basophils % (0.0 - 2.0 %) 0.3 Absolute Granulocytes (1.4 - 6.5 /CUMM) 3.9 Absolute Lymphocytes (1.2 - 3.4 /CUMM) 1.0 L Absolute Monocytes (0.10 - 0.60 /CUMM) 0.4 Absolute Eosinophils (0.0 - 0.7 /CUMM) 0 Absolute Basophils (0.0 - 0.2 /CUMM) 0 12/06 12/06 12/06 1353 1000 1000 Chemistry Sodium (137 - 145 mmol/L) 124 L 122 L Potassium (3.5 - 5.1 mmol/L) 4.3 4.0 Chloride (98 - 107 mmol/L) 92 L 94 L Carbon Dioxide (22 - 30 mmol/L) 21 L 21 L Anion Gap (5 - 16) 10 7 BUN (9 - 20 mg/dL) 11 11 Creatinine (0.7 - 1.2 mg/dL) 0.7 0.6 L Estimated GFR (>60 ml/min) > 60 > 60 BUN/Creatinine Ratio (7 - 25 %) 15.7 18.3 ACTH Stimulation (6 - 50 pg/mL) 13
[2017-12-08] MEDS ORDERED: CORTEF10 M1 PO (12:39)
[2017-12-08] MEDS ORDERED: CORTEF20 M1 PO (12:39)
[2017-12-08] MEDS ORDERED: LISINOPRIL10 M1 PO (12:39)
[2017-12-08] MEDS ORDERED: SYNTHROID100 MCG PO (12:39)
[2017-12-08] MEDS ORDERED: NORVASC5 M1 PO (12:39)
--- NOTE | 2017-12-08 12:42 | Patient Discharge Instructions ---
Discharge Instructions General Discharge Information You were seen/treated for: -PLEASE FOLLOW UP WITH YOUR PRIMARY CARE AFTER DISCHARGE -PLEASE FOLLOW UP WITH DR. HAYES WITHIN 1 WEEK AFTER DISCHARGE -YOU HAVE BEEN PROVIDED A SCRIPT FOR BLOOD WORK, PLEASE GET THAT DONE AT YOUR EARLIEST CONVENIENCE Diet Continue normal diet: Yes Activity Activity Self Limited: Yes Acute Coronary Syndrome Inclusion Criteria At DC or during hospital stay patient has or had the following: ACS DIAGNOSIS No Discharge Core Measures Meds if any: Prescribed or Continued at Discharge Meds if any: NOT Prescribed or Continued at Discharge Congestive Heart Failure Inclusion Criteria At DC or during hospital stay patient has or had the following: CHF DIAGNOSIS No Discharge Core Measures Meds if any: Prescribed or Continued at Discharge Meds if any: NOT Prescribed or Continued at Discharge Cerebrovascular accident Inclusion Criteria At DC or during hospital stay patient has or had the following: CVA/TIA Diagnosis No Discharge Core Measures Meds if any: Prescribed or Continued at Discharge Meds if any: NOT Prescribed or Continued at Discharge Venous thromboembolism Inclusion Criteria VTE Diagnosis No VTE Type NONE VTE Confirmed by (Test) NONE Discharge Core Measures - Per Current guidelines, there needs to be overlap - treatment for the first 5 days of Warfarin therapy. - If discharged on Warfarin prior to 5 days of - overlap therapy, the patient will need to be - assessed for post discharge needs including - *Post discharge parental anticoagulation - *Warfarin and/or parental anticoagulation education - *Follow up date to check INR post discharge At least 5 days overlap therapy as Inpatient No Meds if any: Prescribed or Continued at Discharge Note: Overlap Therapy is Warfarin and Anticoagulant Meds if any: NOT Prescribed or Continued at Discharge
--- NOTE | 2017-12-08 15:29 | Discharge Summary ---
Visit Information Visit Dates Admission Date: 12/05/17 Discharge Date: 12/08/17 Hospital Course Course Attending Physician: Jaida WILLS,Quentin Phelps Primary Care Physician: Isma Nguyen MD Hospital Course: Patient is a 57-year-old male with past medical history significant for hypertension with recent changes in antihypertensive regimen presented to [facility] due to low sodium levels on follow-up labs. Patient was asked to decrease free water intake in his recent ER visit. He reportedly had increased thirst and increased urination lately. The only symptom he had his dizziness and lightheadedness without any seizures/confusion lately. Vital signs at admission are stable. Physical examination is unremarkable. Labs due to sodium of 118 with serum osmolality of 252 and a urine osmolality of 5-1. Urine sodium is 29. Toxicology is positive for cannabis. Chest x-ray is normal. CT chest abdomen and pelvis without contrast did show cysts in liver and kidney along with 2 mm calcified nodule in the right lung. Problem list: 1. 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 His clinical picture is suggestive of hypopituitrim given his labs value (TSH 0.354, free T4 0.44, cortisol 0.8). He was found to have low cortisol level with low nomal free T4 and inappropriately low TSH, also testestrone was very low 22.3, he was started on Hydrocortisone IV 50mg BID and Synthroid 75 mcg, with hydrocortisone administered first. In the next day patient agreed to have MRI brain with and with out Jaren which showed: 1.7 cm hypoenhancing sellar/suprasellar lesion inseparable from the pituitary gland that is most suggestive of a pituitary macroadenoma. his Na level improved so, we discontinued the salt tab and kept him on fluid restriction 1200ml/day, also in the second day of his ICU saty we decreased the dose of Hydrocortisone based on turfgrass technician recommedation to 25mg BID. Na level continue to imorove, in the third day we checked his free T4 level which improved and the dose of synthroid increased to 100mcg, hydrocortisone switched to oral dose (20mg at am and 10 mg at supper time), turfgrass technician recommend to stop fluid restriction as the Na level will improve with synthroid and hydrocortisol. Endocrinologit also suggest that the patient will need further studies. Such as assessment markers of autoimmune or inflammatory disease. In addition to autoimmune hypophysitis tuberculosis and sarcoidosis can involve the pituitary gland. Studies should include a sedimentation rate, angiotensin-converting enzyme, antinuclear antibody, and pituitary antibodies, and tests for tuberculosis.Patient needs to F/U with turfgrass technician as outpatient to follow up the other workup obtained during this hospitalization. Spoke with patient orthopedist at [place], Dr. Gissel Howell regarding left knee implant, it was confirmed that the implant is compatible with MRI. 2.HTN We continued Lisinopril and amlodipine. DVT prophylaxis SC lovenox code status full code Allergies: Coded Allergies: No Known Allergies (12/01/17) Disposition Summary Disposition Principal Diagnosis: -Hypopituitarim -Hyponatremia -HTN Additional Diagnosis: As above Discharge Disposition: home or self care Discharge Instructions General Discharge Information Code Status: Full Code Patient's Diet: PO Patient's Activity: As tolerated Follow-Up Instructions/Appts: -PLEASE FOLLOW UP WITH YOUR PRIMARY CARE AFTER DISCHARGE -PLEASE FOLLOW UP WITH DR. HAYES WITHIN 1 WEEK AFTER DISCHARGE -YOU HAVE BEEN PROVIDED A SCRIPT FOR BLOOD WORK, PLEASE GET THAT DONE AT YOUR EARLIEST CONVENIENCE Medications at Discharge Discharge Medications: Stop taking the following medications: Lisinopril (Lisinopril) 5 MG TABLET ORAL DAILY Continue taking these medications: Amlodipine Besylate (Norvasc) 5 MG TABLET 1 Tablet ORAL DAILY Qty = 14 Comments: Last Taken: 12/08/17 Time: 09:35 This prescription has been renewed Start taking the following new medications: Lisinopril (Lisinopril) 10 MG TABLET 1 Tablet ORAL DAILY Qty = 30 No Refills Comments: Last Taken: 12/08/17 Time:09:35 Levothyroxine Sodium (Synthroid) 100 MCG TABLET 1 Tablet ORAL DAILY BEFORE BREAKFAST Qty = 30 No Refills Comments: Last Taken: 12/08/17 Time: 05:36 Hydrocortisone (Cortef) 20 MG TABLET 1 Tablet ORAL DAILY BEFORE BREAKFAST Qty = 30 No Refills Comments: ONLY IV IN THE HOPSITAL Hydrocortisone (Cortef) 10 MG TABLET 1 Tablet ORAL AT SUPPER TIME Qty = 30 No Refills Comments: ONLY IV IN THE HOSPITAL Copies To: Jaida WILLS,Quentin Phelps; Russel WILLSRufina; Patrick WILLS,Isma Fabian
--- NOTE | 2017-12-08 16:06 | PN- Att Addend ---
Attending Addendum Attending Brief Note Laboratory Tests 12/08/17 0620: Insulin-like GF I Pending, IGF I Z-Score (Male) Pending, IGF I Z-Score (Female) Pending 12/08/17 0620: Anion Gap 11, Estimated GFR > 60, BUN/Creatinine Ratio 22.9, TSH 0.585, Free T4 0.62 L 12/07/17 2020: Vital Signs Date Time Temp Pulse Resp B/P B/P Pulse O2 O2 Flow FiO2 Mean Ox Delivery Rate 12/08 652 97.9 80 16 138/84 94 Room Air 12/07 2315 98.0 84 20 110/70 95 Room Air Pituitary area lesion with suppression of anterior pituitary axis and ? hypophysitis. With low thyroid hormone as well as low cortisol level with hyponatremia. Pt started on replacement therapy per endocrine recommendations. Pt will be dced home in stable condition on levothyroxine and hydrocortisone. Pt will get more workup done as an outpatient and was given the lab slip for that and will f/u with endocrine as an outpatient for that. dw pt and pts family at bedside the care plan. Pt was explained all medication changes and was given prescription for new meds.
== END 2017-12-08 13:23 | DRG 641 ==
LOC: ERH 15:42 → CRI 17:26 → ERHI 17:26 → ENRESERV 18:01 → ERHI 18:43 → CRI 20:15 → ENTRNSPT 12-07 20:35 → EDTRNSPTSTS 12-07 21:03 → EDTRNSPT 12-07 21:03 → CMPTRNSPT 12-07 21:09 → 2NA 12-07 21:09 → ENTRNSPT 12-08 13:09 → EDTRNSPT 12-08 13:16 → EDTRNSPTSTS 12-08 13:16 → 2NA 12-08 13:23 → CMPTRNSPT 12-08 13:33
PROVIDERS: Emergency Medicine; Internal Medicine; Student in an Organized Health Care Education/Training Program
DX: E87.1 Hypo-osmolality and hyponatremia (principal); I10 Essential (primary) hypertension; K21.9 Gastro-esophageal reflux disease without esophagitis; Z86.12 Personal history of poliomyelitis; F12.90 Cannabis use, unspecified, uncomplicated; Z96.652 Presence of left artificial knee joint; E03.9 Hypothyroidism, unspecified
CPT/HCPCS: 2NAP; 70552; 84133; 84300; CCU; 36415; 36592; 70553; 71046; 74176; 80307; 81003; 82436; 82570; 84403; 93005; 93010; 99291; A9579; G0480; J1650; J1720; J7040